=== PATIENT | male | born 1975 | race Caucasian/White ===

== ENCOUNTER 2022-08-25 11:26 | Inpatient (IN) ==
[2022-08-25] MEDS ORDERED: SODIUM CHLORIDE 0.9% 1000ML 1,000 ML IV STA (11:52)
[2022-08-25] MEDS ORDERED: ASPIRIN CHEW 324 MG PO STA (11:52)
[2022-08-25] MEDS ORDERED: ADENOSINE IV SOLN 3 MG/ML 2 ML VIAL IV STA (11:54)
[2022-08-25] MEDS ORDERED: ADENOSINE IV SOLN 3 MG/ML 2 ML VIAL IV ONE (11:55)
[2022-08-25] MEDS ORDERED: dilTIAZem HCl 5 MG/ML 5 ML VIAL IV STA (11:58)
[2022-08-25] MEDS ORDERED: STAT IV Infusion **Titration per Protocol STA (12:15)
--- NOTE | 2022-08-25 12:15 | XRay Report ---
SINGLE VIEW CHEST CLINICAL HISTORY: Atypical chest pain. FINDINGS: 2 AP, portable, upright chest radiographs are obtained. No prior studies are available for comparison at the time of dictation. The examination is degraded by portable technique and apical adrian dotic positioning. The cardiomediastinal silhouette is top normal for projection. The lungs and pleur al spaces are clear. No pneumothorax is seen. The bony thorax is grossly intact. IMPRESSION: No active disease in the chest. ACT 112: Negative or not required by law. Electronically signed by: Omar aBrtlett M.D. 08/25/2022 12:13 PM
[2022-08-25 12:19] LABS: Basophils # (auto) 0.07 K/uL (0-0.2); Basophils % (auto) 0.8 %; Eosinophils # (auto) 0.05 K/uL (0-0.50); Eosinophils % (auto) 0.6 %; Hematocrit (blood only) 49.6 % (40.1-51.0); Hemoglobin 16.8 g/dl (14.0-18.0); Immature Granulocytes # (auto) 0.12 K/uL (0.00-0.02); Immature Granulocytes % (auto) 1.5 %; Lymphocytes # (auto) 1.27 K/uL (1.2-3.4); Lymphocytes % (auto) 15.4 %; Mean Corpuscular Hemoglobin 30.8 pg (25.0-34.0); Mean Corpuscular Hgb Conc 33.9 g/dL (32.0-36.0); Mean Corpuscular Volume 90.8 fL (80.0-100.0); Mean Platelet Volume 10.3 fL (9.4-12.4); Monocytes # (auto) 0.31 K/uL (0.24-0.82); Monocytes % (auto) 3.8 %; Neutrophils # (auto) 6.42 K/uL (1.4-6.5); Neutrophils % (auto) 77.9 %; Platelet Count 312 K/uL (130-400); RDW Coefficient of Variation 11.8 % (11.5-14.5); RDW Standard Deviation 39.1 fL (36.4-46.3); Red Blood Count 5.46 M/uL (4.63-6.08); White Blood Count 8.24 K/ul (4.8-10.8)
[2022-08-25] MEDS: dilTIAZem HCL 125 MG in DEXTROSE 5% 100 ML IV SCH (12:31)
[2022-08-25 12:37] LABS: D Dimer 380 ug/L FEU (0-500); Partial Thromboplastin Time 26.3 Seconds (21.0-31.0); Prothrombin Time 10.8 Seconds (9.0-12.0)
[2022-08-25 12:50] LABS: BUN Creatinine Ratio 21.1 (10-20); Calcium 10.5 mg/dl (8.5-10.1); Creatinine Clr Calc Pharmacy 106.7 ml/min; Est GFR (African American) 88.3 ml/min; Est GFR (Non-African American) 76.2 ml/min; Magnesium 2.2 mg/dl (1.7-2.4); Potassium 4.4 mmol/L (3.5-5.1)
[2022-08-25 12:52] LABS: Troponin I High Sensitivity 10.2 pg/ml (0-20)
[2022-08-25] MEDS ORDERED: ACETAMINOPHEN 325 MG TAB PO PRN (13:56)
[2022-08-25] MEDS ORDERED: ALUMINUM/MAGNESIUM SUSP 30 ML UDC PO PRN (13:56)
[2022-08-25] MEDS ORDERED: MAGNESIUM HYDROXIDE SUSP 30 ML UDC PO PRN (13:56)
[2022-08-25] MEDS ORDERED: POLYETHYLENE (MIRALAX) 17 GM PACK PO PRN (13:56)
[2022-08-25] MEDS ORDERED: ONDANSETRON INJ 2 MG/ML 2 ML VIAL IV PRN (13:56)
--- NOTE | 2022-08-25 13:56 | History & Physical Report ---
Date of Service August 25, 2022 Assessment & Plan (1) New onset a-fib: Plan: New onset; Only reports 20 years ago experiencing an episode of fluttering in his chest for which she went to [facility]. no formal work-up Initially SVT in ED; received NSB 1L x1 and adenosine 6 mg x 2; A. fib/flutter Loaded with 20 mg IV diltiazem; diltiazem drip initiated with titration orders Echo ordered and pending; No baseline in EMR Cardiology consult placed; await further recommendations Orthostatic BPs x3 FOBT prior to any anticoagulation Trend troponin; initial result 10.2 AM labs; TSH Ordered and pending (2) HTN (hypertension): Plan: Takes lisinopril in a.m. notices dizziness midday when he goes from sitting to standing. resolves quickly. Continue Lisinopril for now; await further reccs from Cardiology Creatinine 1.14 (3) Diabetes mellitus due to underlying condition with stage 2 chronic kidney disease, without long-term current use of insulin: Plan: . (4) Macular degeneration: (5) Obesity: Plan: Diagnosed 3 years ago and follows with PCP and glycemic pharmacist outpatient Takes Ozempic weekly on Saturdays, Jardiance, Prandin, glipizide, metformin; hold while inpatient 06/11 A1c 7.5; will recheck while inpatient. Recheck while here patient was receiving steroids outpatient and patient reports his sugars were not reliable on his CGM Transition to [facility] and [facility]cemic pharmacy on board Macular degeneration is mild per patient report (6) Cellulitis of left foot: Plan: Was being treated outpatient since 08/19 with Prednisone; last dose was this morning Blood cultures + MSSA; does not appear toxic at this time Started Ceftin on 08/21; will transition to Ceftriaxone while here; will provide MSSA coverage and decent gram negative coverage No purulent drainage from wound; per patient appears to be improving. left Foot CT r/o abscess (7) HLD (hyperlipidemia): Plan: Takes Rosuvastatin; continue TG 432, LDL 79, HDL 150 Per outpatient records recheck Lipid panel in a.m. Plan Disposition: PCP Dr. Smiley CODE STATUS: Full code VTE prophylaxis: Teds and SCDs for now Point of contact Silas huitron's brother [phone] A total of 92 minutes was spent with greater than 50% of that time personally reviewing all current laboratory work and diagnostic imaging studies obtained in the ED. Additionally, I was able to review the patients past medication reconciliation and history with direct visualization in the patients chart. Included in the time above, a portion of that time was spent assessing the patient while discussing and collaborating with specialists, if necessary, and making medical decisions regarding orders to be placed. All of the aforementioned completed while collaborating with Dr. Joyce for a full treatment plan. Please see her addendum for further details. History of Present Illness Chief Complaint: referred by doctor Primary Care Provider: Chery Smiley MD Mr. Michael Jeffries is a 46-year-old male that presented to the [facility] as per recommendation by his PCP Dr. Smiley. He was being seen for outpatient follow-up for left foot cellulitis and found to be tachycardic in the office. In the ED, the patient was found to have a heart rate of 160. He was given NSB 1L x1 along with adenosine 6 mg x 2; underlying rhythm appears to be rapid atrial fibrillation/atrial flutter. In the ED labs relatively unremarkable aside outside of his glucose level 215. He states that he was receiving prednisone as an outpatient for treatment for his foot cellulitis. Last dose of prednisone was today. Troponin 10.2, D-dimer 380. Patient states that he has been noticing intermittent dizziness midday for the last 8 months which he attributes to his morning dose of lisinopril. Patient states that 20 years ago he did have work-up at [facility] in [place] after he started to have fluttering in his chest however no official diagnosis was received at that time. 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 Patient also plays the guitar. Patient denies headache, chest pain, palpitations, visual changes, nausea, vomiting, diarrhea, appetite changes, recent falls or trauma. Additional past medical history includes noninsulin-dependent diabetic, type two, peripheral neuropathy,hyperlipidemia, hypertension and obesity. Patient states he drinks coffee 1 time per day, is a social beer drinker with 5- 6 beers per month and occasional bourbon. Patient quit smoking 17 years ago. No recreational drug use. No exercise routine. Patient reports that his father of a AMI 4 years ago. MGF diabetic, CVA. In the ED, the patient was lying in his bed in no apparent distress and was able to speak in complete sentences without distress. Patient will be admitted for further evaluation and management. Please see A/P for further details. Allergies Allergy/AdvReac Type Severity Reaction Status Date / Time No Known Allergies Allergy Unverified 05/27/13 12:09 Home Medications Medication Instructions Recorded Confirmed Type GLIPIZIDE (GLUCOTROL) 5 mg PO twice daily w meals ##60 05/31/13 08/25/22 Rx METFORMIN HCL (GLUCOPHAGE EXT REL) 1,000 mg PO BID #0 tabs 07/06/13 08/25/22 History ATORVASTATIN (LIPITOR) 10 mg PO DAILY #0 tabs 10/07/13 08/25/22 History empagliflozin 25 mg tablet 25 mg PO QAM 08/25/22 08/25/22 History lisinopril 10 mg tablet 10 mg PO DAILY 08/25/22 08/25/22 History repaglinide 0.5 mg tablet 0.5 mg 08/25/22 History rosuvastatin 20 mg tablet 20 mg PO DAILY 08/25/22 08/25/22 History Past Med/Surg History Medical History Cellulitis of left foot Diabetes mellitus due to underlying condition with stage 2 chronic kidney disease, without long-term current use of insulin HLD (hyperlipidemia) HTN (hypertension) Macular degeneration New onset a-fib Obesity Social History Smoking Status: Former smoker Tobacco Type: Cigarettes Second Hand Exposure: No; Do You Dip or Chew Tobacco: No; Hx Alcohol Use: Yes Alcohol type: beer and other Hx Substance Use: Yes Last Used Substance Other:: month ago Substance Use Type Other:: twice a year Preferred Language: Lebanese Communication Ability: Effective Floor Polisher Required: No Beliefs That Will Affect Care: None Current Living Situation: Alone Other Information That Helps Us Care for You: No Feels Safe at Home: Yes Safety Concerns: Feels Safe At This Time Assistive Devices: Glasses Review of Systems Review of Systems: Neuro: (-) Falls, trauma, slurred speech HEENT: (-) BARNES, dizziness, dysphagia, visual or auditory changes CV: (-) CP, palpitations, swelling Resp: (-) SOB GI: (-) appetite changes, N/V/D, bowel changes : (-) urinary changes Skin: (-) rashes Psych: (-) anxiety, depression Physical Exam Physical Exam: Neuro: AAOx4, PERRLA, no aphagia, memory changes, CNII-XII grossly intact HEENT: head normocephalic, moist mucus membranes CV: S1/S2, (-) M/G/R, (-) edema, cap refill < 3 seconds Resp: Lungs CTA in all suarez. On RA GI: Abdomen S/NT/ND, Ax4 bowel sounds, (-) CVA tenderness Musculoskeletal: 5/5 B/L UE strength, 5/5 B/L LE strength. No gait disturbance Skin: (-) rashes , (+) erythema dorsal part of left foot. Dime sized wound Without purulent drainage. Erythematous borders. Psych: euthymic mood Results & Data Results & Data ([facility]) Vital Signs (Past 12 Hours) Vital Signs Temp Pulse Pulse Resp BP BP Pulse Ox 08/25/22 12:08 08/25/22 12:06 109 H 20 131/95 100 08/25/22 12:06 08/25/22 11:29 36.4 C L 158 H 20 123/79 98 O2 Del Method 08/25/22 12:08 Room Air 08/25/22 12:06 08/25/22 12:06 Room Air 08/25/22 11:29 Room Air Laboratory Results Short CBC 08/25/22 Range/Units 11:40 WBC 8.24 (4.8-10.8) K/ul Hgb 16.8 (14.0-18.0) g/dl Hct 49.6 (40.1-51.0) % Plt Count 312 (130-400) K/uL BMP 08/25/22 11:40 Sodium 139 Potassium 4.4 Chloride 99 Carbon Dioxide 28 BUN 24 H Creatinine 1.14 Glucose 215 H Calcium 10.5 H Diagnostic Findings Chest X-Ray 08/25/22 11:52 SINGLE VIEW CHEST CLINICAL HISTORY: Atypical chest pain. FINDINGS: 2 AP, portable, upright chest radiographs are obtained. No prior studies are available for comparison at the time of dictation. The examination is degraded by portable technique and apical lordotic positioning. The cardiomediastinal silhouette is top normal for projection. The lungs and pleural spaces are clear. No pneumothorax is seen. The bony thorax is grossly intact. IMPRESSION: No active disease in the chest. ACT 112: Negative or not required by law. Electronically signed by: Omar Bartlett M.D. 08/25/2022 12:13 PM Code Status & VTE Plan Code Status Full code in the event of cardiac or respiratory arrest VTE Prophylaxis Plan VTE Prophylaxis will be ordered: Yes Supervising Physician Co-Signing Physician Notes Patient seen and examined. chart reviewed. Case discussed with ARA. Will get CT left foot with contrast. Consult Orthopedic surgery for evaluation. Left foot on exam +fluctuance. Agree with remaining assessment and plan as above
--- NOTE | 2022-08-25 15:09 | Electrocardiogram Report ---
Test Reason : Blood Pressure : / mmHG Vent. Rate : 157 BPM Atrial Rate : 157 BPM P-R Int : 176 ms QRS Dur : 092 ms QT Int : 250 ms P-R-T Axes : 000 -07 025 degrees QTc Int : 404 ms Sinus tachycardia Otherwise normal ECG No previous ECGs available Confirmed by Ihsan Ruiz ([id number]) on 08/25/2022 3:09:37 PM Referred By: Confirmed By:Ihsan Ruiz
[2022-08-25 15:27] LABS: Chol HDL Ratio 5.4 (0-5)
--- NOTE | 2022-08-25 15:27 | Electrocardiogram Report ---
Test Reason : Blood Pressure : / mmHG Vent. Rate : 156 BPM Atrial Rate : 159 BPM P-R Int : 000 ms QRS Dur : 090 ms QT Int : 298 ms P-R-T Axes : 000 -02 018 degrees QTc Int : 480 ms Supraventricular tachycardia Otherwise normal ECG When compared with ECG of 25-AUG-2022 11:34, No significant change was found Confirmed by Ihsan Ruiz ([id number]) on 08/25/2022 3:27:07 PM Referred By: [id number] Confirmed By:Ihsan Ruiz
--- NOTE | 2022-08-25 15:29 | Electrocardiogram Report ---
Test Reason : Blood Pressure : / mmHG Vent. Rate : 119 BPM Atrial Rate : 340 BPM P-R Int : 000 ms QRS Dur : 096 ms QT Int : 320 ms P-R-T Axes : 000 -06 016 degrees QTc Int : 450 ms Atrial flutter with variable A-V block Abnormal ECG When compared with ECG of 25-AUG-2022 11:53, HR has decreased by 37 bpm Prior ECGs from today also likely atrial flutter Confirmed by Ihsan Ruiz ([id number]) on 08/25/2022 3:28:54 PM Referred By: REFERRED SELF Confirmed By:Ihsan Ruiz
--- NOTE | 2022-08-25 15:33 | Electrocardiogram Report ---
Test Reason : Blood Pressure : / mmHG Vent. Rate : 108 BPM Atrial Rate : 326 BPM P-R Int : 000 ms QRS Dur : 096 ms QT Int : 350 ms P-R-T Axes : 254 -10 015 degrees QTc Int : 469 ms Atrial flutter with variable A-V block Abnormal ECG When compared with ECG of 25-AUG-2022 12:01, No significant change Confirmed by Ihsan Ruiz ([id number]) on 08/25/2022 3:33:02 PM Referred By: REFERRED SELF Confirmed By:Ihsan Ruiz
--- NOTE | 2022-08-25 15:38 | Electrocardiogram Report ---
Test Reason : Blood Pressure : / mmHG Vent. Rate : 112 BPM Atrial Rate : 112 BPM P-R Int : 134 ms QRS Dur : 090 ms QT Int : 336 ms P-R-T Axes : 073 -12 009 degrees QTc Int : 458 ms Atrial flutter with 3:1 block Borderline ECG When compared with ECG of 25-AUG-2022 12:28, No significant change Confirmed by Ihsan Ruiz ([id number]) on 08/25/2022 3:37:50 PM Referred By: REFERRED SELF Confirmed By:Ihsan Ruiz
[2022-08-25] MEDS ORDERED: cefTRIAXone SODIUM 2000MG/70ML D5W IV ONE (16:21)
--- NOTE | 2022-08-25 16:21 | Emergency Department Note ---
History of Present Illness General Chief complaint: Arrhythmia/Palpitations Stated complaint: REF BY DOC, ARRHYTHMIA Time Seen by Provider: 08/25/22 11:46 History of Present Illness Provider complaint: Arrhythmia Onset (ago): unknown Maximum Pain Intensity: 1 46-year-old male presents emergency department for evaluation for arrhythmia. Patient states he went to his PCPs office to follow-up on his foot which he is being treated for for cellulitis. He states his foot is much better after being on outpatient antibiotics. He states while at his PCPs office they noted his heart rate was fast did an EKG and sent him to the emergency department because they thought he had an arrhythmia. Patient reports no chest pain difficulty breathing. No trauma. No fall. No exogenous hormone usage. No hemoptysis. No hematuria or dysuria. No recent travel. Patient does report recently having COVID-19. Home Medications Medication Instructions Recorded Confirmed Type GLIPIZIDE (GLUCOTROL) 5 mg PO twice daily w meals ##60 05/31/13 08/25/22 Rx METFORMIN HCL (GLUCOPHAGE EXT REL) 1,000 mg PO BID #0 tabs 07/06/13 08/25/22 History ATORVASTATIN (LIPITOR) 10 mg PO DAILY #0 tabs 10/07/13 08/25/22 History empagliflozin 25 mg tablet 25 mg PO QAM 08/25/22 08/25/22 History lisinopril 10 mg tablet 10 mg PO DAILY 08/25/22 08/25/22 History repaglinide 0.5 mg tablet mg 08/25/22 History rosuvastatin 20 mg tablet 20 mg PO DAILY 08/25/22 08/25/22 History Allergies Allergy/AdvReac Type Severity Reaction Status Date / Time No Known Allergies Allergy Unverified 05/27/13 12:09 Past Med/Surg History Medical History Cellulitis of left foot Diabetes mellitus due to underlying condition with stage 2 chronic kidney disease, without long-term current use of insulin HLD (hyperlipidemia) HTN (hypertension) Macular degeneration New onset a-fib Obesity Social History Smoking Status: Former smoker Tobacco Type: Cigarettes Feels Safe at Home: Yes Physical Exam Vital Signs Vital Signs - 24 hr 08/25/22 11:29 08/25/22 12:06 08/25/22 12:06 Temperature 36.4 C L Temperature Source Skin Pulse Rate 158 H Pulse Rate [Apical] 109 H Pulse Rate from SpO2 Sensor Respiratory Rate 20 20 Respiratory Effort / Characteristics Non-Labored Spontaneous Respiratory Depth Normal Respiratory Pattern Regular Blood Pressure 123/79 Blood Pressure [Left Arm] 131/95 Blood Pressure Mean 93 Blood Pressure Mean [Left Arm] 107 Pulse Oximetry 98 100 Oxygen Delivery Method Room Air Room Air Sepsis Recent Fever Within 48 Hours No Sepsis New/Unexplained Change in Mental Status N/A Sepsis Action Taken by Nursing No Action Required 08/25/22 12:08 08/25/22 11:50 08/25/22 11:51 Temperature Temperature Source Pulse Rate 157 H Pulse Rate [Apical] Pulse Rate from SpO2 Sensor 157 H Respiratory Rate 14 Respiratory Effort / Characteristics Respiratory Depth Respiratory Pattern Blood Pressure 144/104 H Blood Pressure [Left Arm] Blood Pressure Mean 117 Blood Pressure Mean [Left Arm] Pulse Oximetry 98 Oxygen Delivery Method Room Air Sepsis Recent Fever Within 48 Hours Sepsis New/Unexplained Change in Mental Status Sepsis Action Taken by Nursing 08/25/22 11:58 08/25/22 11:58 08/25/22 12:00 Temperature Temperature Source Pulse Rate 157 H Pulse Rate [Apical] Pulse Rate from SpO2 Sensor 156 H Respiratory Rate 15 Respiratory Effort / Characteristics Respiratory Depth Respiratory Pattern Blood Pressure 124/98 131/95 Blood Pressure [Left Arm] Blood Pressure Mean 106 107 Blood Pressure Mean [Left Arm] Pulse Oximetry 99 Oxygen Delivery Method Sepsis Recent Fever Within 48 Hours Sepsis New/Unexplained Change in Mental Status Sepsis Action Taken by Nursing 08/25/22 12:00 08/25/22 12:30 08/25/22 12:30 Temperature Temperature Source Pulse Rate 157 H 109 H Pulse Rate [Apical] Pulse Rate from SpO2 Sensor 156 H 99 H Respiratory Rate 16 16 Respiratory Effort / Characteristics Respiratory Depth Respiratory Pattern Blood Pressure 127/75 Blood Pressure [Left Arm] Blood Pressure Mean 92 Blood Pressure Mean [Left Arm] Pulse Oximetry 100 96 Oxygen Delivery Method Sepsis Recent Fever Within 48 Hours Sepsis New/Unexplained Change in Mental Status Sepsis Action Taken by Nursing 08/25/22 13:00 08/25/22 13:00 08/25/22 13:34 Temperature Temperature Source Pulse Rate 111 H 126 H Pulse Rate [Apical] Pulse Rate from SpO2 Sensor 85 Respiratory Rate 6 L 12 Respiratory Effort / Characteristics Respiratory Depth Respiratory Pattern Blood Pressure 118/77 Blood Pressure [Left Arm] Blood Pressure Mean 90 Blood Pressure Mean [Left Arm] Pulse Oximetry 96 Oxygen Delivery Method Sepsis Recent Fever Within 48 Hours Sepsis New/Unexplained Change in Mental Status Sepsis Action Taken by Nursing 08/25/22 14:00 08/25/22 14:30 08/25/22 14:31 Temperature Temperature Source Pulse Rate 113 H 112 H Pulse Rate [Apical] Pulse Rate from SpO2 Sensor Respiratory Rate 22 Respiratory Effort / Characteristics Respiratory Depth Respiratory Pattern Blood Pressure 131/80 Blood Pressure [Left Arm] Blood Pressure Mean 97 Blood Pressure Mean [Left Arm] Pulse Oximetry Oxygen Delivery Method Sepsis Recent Fever Within 48 Hours Sepsis New/Unexplained Change in Mental Status Sepsis Action Taken by Nursing 08/25/22 14:31 08/25/22 15:00 08/25/22 15:00 Temperature Temperature Source Pulse Rate 114 H 112 H Pulse Rate [Apical] Pulse Rate from SpO2 Sensor Respiratory Rate Respiratory Effort / Characteristics Respiratory Depth Respiratory Pattern Blood Pressure 122/75 Blood Pressure [Left Arm] Blood Pressure Mean 90 Blood Pressure Mean [Left Arm] Pulse Oximetry Oxygen Delivery Method Sepsis Recent Fever Within 48 Hours Sepsis New/Unexplained Change in Mental Status Sepsis Action Taken by Nursing Physical Exam GENERAL: He is oriented to person, place, and time. He appears well-developed and well-nourished. He does not appear distressed. HENT: Exam performed. - Head: Normocephalic and atraumatic. - Right Ear: External ear normal. No mastoid tenderness. - Left Ear: External ear normal. No mastoid tenderness. - Mouth/Throat: The oropharynx is clear and moist. No trismus in the jaw. No dental abscesses or uvula swelling. No oropharyngeal exudate or tonsillar abscesses. EYES: Conjunctivae and EOM are normal. Pupils are equal, round, and reactive to light. Right eye exhibits no discharge. Left eye exhibits no discharge. No scleral icterus. NECK: Normal range of motion. Neck supple. No JVD present. No spinous process tenderness present. No carotid bruit present. No rigidity. No tracheal deviation and normal range of motion present. No Brudzinski's sign and no Kernig's sign noted. CV: Tachycardic rate, regular rhythm, normal heart sounds and intact distal pulses. There is no peripheral edema. Palpable radial pulses bue. PULM/CHEST: Effort normal and breath sounds normal. No respiratory distress. No stridor. He has no wheezes. He has no rales. - Chest Wall: He exhibits no tenderness. ABD: The abdomen is soft. Bowel sounds are normal. He has no distension. No mass is present. There is no tenderness. There is no rebound, no guarding, no Murp hy's sign and no tenderness at McBurney's point. Rovsig negative. MUSC/SKEL: Normal range of motion. There is no peripheral edema, tenderness or deformity. LYMPH: No cervical adenopathy. NEURO: He is alert and oriented to person, place, and time. He has normal strength. No cranial nerve deficit or sensory deficit. Coordination and gait normal. GCS eye subscore is 4. GCS verbal subscore is 5. GCS motor subscore is 6. Cerebellar tests wnl. SKIN: Erythema over the dorsum of the left foot. No fluctuant areas no bullae no vesicles Nikolsky negative. Course Course 1146: The patient was evaluated in room C2. A complete history and physical exam was performed Cardiac monitoring: An order was placed for continuous cardiac monitoring. The monitor shows a rate of 160 with svt rhythm Patient's monitoring coordinator shows SVT. Adenosine 6 mg IV push was conducted and after that the adenosine was pushed rhythm strip was involved which appeared to be atrial flutter. Patient was given Cardizem bolus 20 mg IV push which did ap pear to improve the patient's ventricular rate. 1215: Patient remains tachycardic in atrial flutter/atrial fibrillation on the monitor. Patient will be started on Cardizem drip. 1330: Vital signs stable on Cardizem drip. Labs and imaging are within normal limits including negative D-dimer troponin and chest x-ray. [facility] new onset atrial fibrillation usually controlled on Cardizem drip. Administered Medications Diltiazem HCl 125 mg/ Dextrose 125 mls @ 7.5 mls/hr IV .[id number] [facility]; Protocol Stop: 09/24/22 12:14 Last Titration: 08/25/22 12:55 Dose: 7.5 mg/hr, 7.5 mls/hr Documented By: WILALM Co-signed By: COREEN Titration: 08/25/22 12:53 Dose: 10 mg/hr, 10 mls/hr Documented By: WILLAM Co-signed By: JENNIFER Admin: 08/25/22 12:31 Dose: 5 mg/hr, 5 mls/hr Documented By: WILLAM Co-signed By: JENNIFER Discontinued Medications Adenosine (Adenosine Iv Soln 3 Mg/Ml 2 Ml Vial) 6 mg IV NOW STA Stop: 08/25/22 11:55 Last Admin: 08/25/22 12:10 Dose: 6 mg Documented By: WILLAM Adenosine (Adenosine Iv Soln 3 Mg/Ml 2 Ml Vial) Confirm Administered Dose 6 mg IV .STK-MED ONE Stop: 08/25/22 11:56 Last Admin: 08/25/22 12:12 Dose: Not Given Documented By: WILLAM Aspirin (Aspirin Chew 324 Mg) 324 mg PO NOW STA Stop: 08/25/22 11:53 Last Admin: 08/25/22 12:10 Dose: 324 mg Documented By: WILLAM Diltiazem HCl (Diltiazem Hcl 5 Mg/Ml 5 Ml Vial) 20 mg IV NOW STA Stop: 08/25/22 11:59 Last Admin: 08/25/22 12:11 Dose: 20 mg Documented By: WILLAM Co-signed By: JAVIER Sodium Chloride (Nss 1000ml) 1,000 mls @ 999 mls/hr IV .Q1H1M STA Stop: 08/25/22 12:52 Last Admin: 08/25/22 12:10 Dose: 999 mls/hr Documented By: WILLAM Miscellaneous (Stat Iv Infusion Titration Per Protocol) 1 each N/A NOW STA Stop: 08/25/22 12:16 Last Admin: 08/25/22 12:34 Dose: Not Given Documented By: WILLAM Critical Care Time Critical Care Time: Yes Total Critical Care Time: 64 I have personally spent greater than 64 minutes of critical care time in the direct management of this patient. This includes bedside care, interpretation of diagnostic studies, and testing, discussion with consultants, patient, and family members, and other required patient management activities. This 64 minutes is in excess of all separately billable procedures. Medical Decision Making Laboratory Data Attestation: I reviewed the patient's lab results. Result diagrams: 08/25/22 11:40 08/25/22 11:40 Lab Results 08/25/22 08/25/22 08/25/22 Range/Units 11:40 11:40 11:40 WBC 8.24 (4.8-10.8) K/ul RBC 5.46 (4.63-6.08) M/uL Hgb 16.8 (14.0-18.0) g/dl Hct 49.6 (40.1-51.0) % MCV 90.8 (80.0-100.0) fL MCH 30.8 (25.0-34.0) pg MCHC 33.9 (32.0-36.0) g/dL RDW Std Deviation 39.1 (36.4-46.3) fL RDW Coeff of Stephanie 11.8 (11.5-14.5) % Plt Count 312 (130-400) K/uL MPV 10.3 (9.4-12.4) fL Immature Gran % (Auto) 1.5 % Neut % (Auto) 77.9 % Lymph % (Auto) 15.4 % Branch % (Auto) 3.8 % Eos % (Auto) 0.6 % Baso % (Auto) 0.8 % Neut # (Auto) 6.42 (1.4-6.5) K/uL Lymph # (Auto) 1.27 (1.2-3.4) K/uL Branch # (Auto) 0.31 (0.24-0.82) K/uL Eos # (Auto) 0.05 (0-0.50) K/uL Baso # (Auto) 0.07 (0-0.2) K/uL Immature Gran # (Auto) 0.12 H (0.00-0.02) K/uL PT 10.8 (9.0-12.0) Seconds INR 1.0 (0.9-1.1) APTT 26.3 (21.0-31.0) Seconds PTT Ratio 1.0 D-Dimer 380 (0-500) ug/L FEU Sodium 139 (136-145) mmol/L Potassium 4.4 (3.5-5.1) mmol/L Chloride 99 (98-107) mmol/L Carbon Dioxide 28 (21-32) mmol/L Anion Gap 12 H (3-11) BUN 24 H (6-23) mg/dl Creatinine 1.14 (0.6-1.4) mg/dl Est Cr Clr Drug Dosing 106.7 ml/min Est GFR ( Amer) 88.3 ml/min Est GFR (Non-Af Amer) 76.2 ml/min BUN/Creatinine Ratio 21.1 H (10-20) Glucose 215 H (70-99(Fasting)) mg/dl Calcium 10.5 H (8.5-10.1) mg/dl Magnesium 2.2 (1.7-2.4) mg/dl Troponin I High Sens 10.2 (0-20) pg/ml Triglycerides (0-150) mg/dl Cholesterol (0-200) mg/dl LDL Cholesterol, Calc mg/dl VLDL Cholesterol, Calc (0-30) mg/dl HDL Cholesterol mg/dl Cholesterol/HDL Ratio (0-5) Lipase 30 (11-82) U/L SARS-CoV-2, RNA, NAAT (NEGATIVE) 08/25/22 08/25/22 Range/Units 11:44 12:17 WBC (4.8-10.8) K/ul RBC (4.63-6.08) M/uL Hgb (14.0-18.0) g/dl Hct (40.1-51.0) % MCV (80.0-100.0) fL MCH (25.0-34.0) pg MCHC (32.0-36.0) g/dL RDW Std Deviation (36.4-46.3) fL RDW Coeff of Stephanie (11.5-14.5) % Plt Count (130-400) K/uL MPV (9.4-12.4) fL Immature Gran % (Auto) % Neut % (Auto) % Lymph % (Auto) % Branch % (Auto) % Eos % (Auto) % Baso % (Auto) % Neut # (Auto) (1.4-6.5) K/uL Lymph # (Auto) (1.2-3.4) K/uL Branch # (Auto) (0.24-0.82) K/uL Eos # (Auto) (0-0.50) K/uL Baso # (Auto) (0-0.2) K/uL Immature Gran # (Auto) (0.00-0.02) K/uL PT (9.0-12.0) Seconds INR (0.9-1.1) APTT (21.0-31.0) Seconds PTT Ratio D-Dimer (0-500) ug/L FEU Sodium (136-145) mmol/L Potassium (3.5-5.1) mmol/L Chloride (98-107) mmol/L Carbon Dioxide (21-32) mmol/L Anion Gap (3-11) BUN (6-23) mg/dl Creatinine (0.6-1.4) mg/dl Est Cr Clr Drug Dosing ml/min Est GFR ( Amer) ml/min Est GFR (Non-Af Amer) ml/min BUN/Creatinine Ratio (10-20) Glucose (70-99(Fasting)) mg/dl Calcium (8.5-10.1) mg/dl Magnesium (1.7-2.4) mg/dl Troponin I High Sens (0-20) pg/ml Triglycerides 314 H (0-150) mg/dl Cholesterol 178 (0-200) mg/dl LDL Cholesterol, Calc 82 mg/dl VLDL Cholesterol, Calc 63 H (0-30) mg/dl HDL Cholesterol 33 mg/dl Cholesterol/HDL Ratio 5.4 H (0-5) Lipase (11-82) U/L SARS-CoV-2, RNA, NAAT NEGATIVE (NEGATIVE) Imaging Data Radiologist's Impression: Chest X-Ray 08/25/22 11:52 SINGLE VIEW CHEST CLINICAL HISTORY: Atypical chest pain. FINDINGS: 2 AP, portable, upright chest radiographs are obtained. No prior studies are available for comparison at the time of dictation. The examination is degraded by portable technique and apical lordotic positioning. The car diomediastinal silhouette is top normal for projection. The lungs and pleural spaces are clear. No pneumothorax is seen. The bony thorax is grossly intact. IMPRESSION: No active disease in the chest. ACT 112: Negative or not required by law. Electronically signed by: Omar Bartlett M.D. 08/25/2022 12:13 PM ECG Data Attestation: I personally reviewed and interpreted this ECG as follows: Additional Comments: EKG #1 at 1134: SVT with rate of 157 QRS [address] elevation or ST depression. EKG #2 at 1153: SVT with rate of 156. QRS [address] elevation or ST depression. EKG #3 at 1154: SVT with rate of 156. QRS [address] elevation or ST depression EKG #4 at 1201 status post adenosine 6 mg IV push: Atrial flutter with a rate of 119. QRS [address] elevation or ST depression. EKG #5 at 1228 status post Cardizem 20 mg IV push: Atrial flutter with a rate of 108. QRS [address] elevation or ST depression. EKG #6 at 1325: Sinus tachycardia with rate of 112. PA QRS and QTc intervals within normal limits. No ST elevation or ST depression. [facility] Narrative 1146: The patient was evaluated in room C2. A complete history and physical exam was performed Cardiac monitoring: An order was placed for continuous cardiac monitoring. The monitor shows a rate of 160 with svt rhythm Patient's monitoring coordinator shows SVT. Adenosine 6 mg IV push was conducted and after that the adenosine was pushed rhythm strip was involved which appeared to be atrial flutter. Patient was given Cardizem bolus 20 mg IV push which did appear to improve the patient's ventricular rate. 1215: Patient remains tachycardic in atrial flutter/atrial fibrillation on the monitor. Patient will be started on Cardizem drip. 1330: Vital signs stable on Cardizem drip. Labs and imaging are within normal limits including negative D-dimer troponin and chest x-ray. [facility] new onset atrial fibrillation usually controlled on Cardizem drip. Impression & Plan Atrial flutter, SVT (supraventricular tachycardia) Discharge Plan Visit Data Chief Complaint: Arrhythmia/Palpitations Stated Complaint: REF BY DOC, ARRHYTHMIA ED Provider: Angel Charles Discharge Problem: Atrial flutter, SVT (supraventricular tachycardia) Patient Disposition: Admitted As Inpatient Forms Stand Alone Forms: [facility] Prescriptions Prescriptions: No Action GLIPIZIDE (GLUCOTROL) 5 MG tablet 5 mg PO twice daily w meals Qty: 60 2RF METFORMIN HCL (GLUCOPHAGE EXT REL) 1,000 MG tablet 1,000 mg PO BID Qty: 0 ATORVASTATIN (LIPITOR) 10 MG tablet 10 mg PO DAILY Qty: 0 repaglinide 0.5 mg Tablet lisinopril 10 mg Tablet 10 mg PO DAILY rosuvastatin 20 mg Tablet 20 mg PO DAILY empagliflozin 25 mg Tablet 25 mg PO QAM Referrals Referrals: Chery Smiley MD [Primary Care Provider] -
[2022-08-25] MEDS: cefTRIAXone SODIUM 2,000 MG in DEXTROSE 5% 50 ML IV SCH (16:25)
[2022-08-25] MEDS ORDERED: PHARMACY GLYCEMIC MGMT CONSULT PRN (17:27)
[2022-08-25] MEDS ORDERED: CARBOHYDRATES FOR HYPOGLYCEMIA PO PRN (17:27)
[2022-08-25] MEDS ORDERED: GLUCOSE 40% GEL 15 GM TUBE PO PRN (17:27)
[2022-08-25] MEDS ORDERED: DEXTROSE 50% 50 ML SYRINGE IV PRN (17:27)
[2022-08-25] MEDS ORDERED: GLUCOSE 10 TAB/TUBE PO PRN (17:27)
[2022-08-25] MEDS ORDERED: GLUCAGON FOR INJ 1 MG VIAL SQ PRN (17:27)
[2022-08-25] MEDS ORDERED: INSULIN ASPART PER UNIT SC SCH (18:00)
[2022-08-25] MEDS ORDERED: LANTUS PER UNIT CHARGE SQ SCH ×4 (18:00→21:00)
[2022-08-25] MEDS ORDERED: VANCOMYCIN CONSULT ACTIVE PRN (18:04)
[2022-08-25] MEDS ORDERED: VANCOMYCIN HCL 1,000 MG in SODIUM CHLORIDE 0.9% 250 ML IV STA (18:04)
[2022-08-25] MEDS: SODIUM CHLORIDE 0.9% 1000ML 1,000 ML IV SCH (18:23)
[2022-08-25] MEDS ORDERED: VANCOMYCIN HCL 2,250 MG in SODIUM CHLORIDE 0.9% 500 ML IV ONE (18:30)
--- NOTE | 2022-08-25 19:09 | XRay Report ---
LEFT FOOT 3 VIEWS HISTORY: Left foot pain COMPARISON: None. FINDINGS: There is no fracture or dislocation. Soft tissues are unremarkable. Mild vascular calcifica tions are noted within the left ankle. There is a posterior calcaneal spur. The Lisfranc joint is int act. IMPRESSION: No fractures. ACT 112: Negative or not required by law. Electronically signed by: Jaunsz Jacobsen M.D. 08/25/2022 7:06 PM
[2022-08-25] MEDS: INSULIN ASPART PER UNIT SC SCH (20:36)
[2022-08-25] MEDS ORDERED: OPTIRAY 350 100ml IV ONE (21:07)
--- NOTE | 2022-08-25 21:11 | Progress Notes ---
Michael is 46 years old. He is admitted to the hospital for cardiac arrhythmia. About 10 days ago, pedro geller developed redness on the left foot. There is no known injury, insect bite, puncture wound, etc. Pedro geller saw his family doctor, was initially given parenteral antibiotics. This was eventually converted t o orals. Things gradually got better. He initially had pretty significant redness and swelling and some pain. The swelling has improved and the redness has receded from the entire foot to the forefoo t area. He then developed some blistering and some dried skin and what looked like some purulence un derneath it, but it never drained. He reports no injury. He has denied having any fevers, chills, o r sweats. His past medical history is significant for cardiac arrhythmia, diabetes, and obesity. Medications a t home reviewed and noted, Lipitor, empagliflozin ____, glipizide, lisinopril, metformin, repaglinide , rosuvastatin. No known allergies. He is afebrile. His vital signs are stable, although he has been tachycardic, likely related to his heart arrhythmia. White count is 8, hemoglobin 17, hematocrit 50, platelets 312. There is no left s hift. PT/INR normal. His chemistry panel is noted. COVID negative. X-ray of the foot demonstrates possible soft tissue swelling. No air in the tissue. There is no fracture or bony destruction. No evidence of osteomyelitis. No arthritis. Report is noted. CT scan is pending. On exam, PT pulse is nonpalpable, DP pulse is trace. Capillary refill less than 2 seconds. He has f ull movement of the toes, ankle, and subtalar joint without difficulty. The foot is neutrally aligne d and he has 5/5 strength to ankle and toe plantar flexion, dorsiflexion, inversion, and eversion. T here is no pain with passive movement of the toes. There is erythema in the lateral portion of the f orefoot. There is an area of fluctuance, which would somewhat overlie the dorsal aspect of the third metatarsophalangeal joint. There is no pain with movement of this joint and nothing plantarly. Genevieve rything is all localized dorsally. Erythema extending to mid foot down to the base of the digits and over to about the second toe. Minimally tender. Positive fluctuance is noted consistent with fluid . IMPRESSION: Left foot abscess. PLAN: Findings are discussed. He does not have any systemic signs or symptoms of illness. This has been going on for 10 days. I am suspicious that there could be a small abscess present. I would re commend that we go to the operating room tomorrow morning and do an incision and drainage. He agrees to proceed. We talked about treatment options, risks, benefits, rehab, and recovery. He will be n. p.o. after midnight. Continue to elevate. He is on vancomycin and ceftriaxone. There is a chance t hat the infection may involve the metatarsophalangeal joint, which I doubt, but the OR would be the b est place to address that. Informed consent was obtained. No issues with bleeding, blood clots, met al allergies, or MRSA. Job ID: [id number]
--- NOTE | 2022-08-25 21:37 | Pharmacy Report ---
Pharmacy PK ABX Note - Date of Service August 25, 2022 - Assessment and Plan Assessment 46 year old M receiving vancomycin and ceftriaxone for treatment of left foot cellulitis/abscess. Blood cultures pending. Plan for I&D tomorrow. Renal function stable. Day # 1 of antimicrobial therapy. Plan Vancomycin * Loading dose: 2250 mg IV x 1 * Maintenance dose: 1250 mg IV every 12 hours * Regimen is predicted to achieve target AUC/STARR of 400-600 mg/L.hr * Level will be obtained around steady state or sooner if clinically indicated Pharmacy will continue to follow and will adjust dose/frequency as necessary. Thank you. Pharmacy has transitioned to AUC monitoring for vancomycin. AUC/STARR is the preferred PK/PD target and is associated with decreased risk of nephrotoxicity compared to traditional trough targets.
[2022-08-26] MEDS: dilTIAZem HCL 125 MG in DEXTROSE 5% 100 ML IV SCH (04:05)
[2022-08-26 04:30] LABS: Appearance Urine Clear (Clear); Bilirubin Urine Negative (Negative); Blood Urine Negative (Negative); Color Urine Yellow; Glucose Urine UA 3+ (Negative); Ketones Urine 1+ (Negative); Leukocyte Esterase Urine Negative (Negative); Nitrite Urine Negative (Negative); Protein Urine Negative (Negative); Specific Gravity Urine 1.036 (1.000-1.030); Urobilinogen Urine Negative (Negative); pH Urine 5.5 (4.5-7.5)
[2022-08-26] MEDS: SODIUM CHLORIDE 0.9% 1000ML 1,000 ML IV SCH (06:00)
[2022-08-26] MEDS ORDERED: VANCOMYCIN HCL 1,250 MG in SODIUM CHLORIDE 0.9% 250 ML IV SCH (06:00)
[2022-08-26 06:31] LABS: Hemoglobin 14.3 g/dl (14.0-18.0); Mean Corpuscular Hemoglobin 30.6 pg (25.0-34.0); Mean Corpuscular Volume 89.7 fL (80.0-100.0); Platelet Count 259 K/uL (130-400); RDW Coefficient of Variation 11.9 % (11.5-14.5); RDW Standard Deviation 38.6 fL (36.4-46.3); Red Blood Count 4.68 M/uL (4.63-6.08); White Blood Count 7.41 K/ul (4.8-10.8)
[2022-08-26 06:56] LABS: BUN Creatinine Ratio 23.9 (10-20); C Reactive Protein 1.37 mg/dl (0-0.5); Calcium 8.2 mg/dl (8.5-10.1); Creatinine Clr Calc Pharmacy 138.2 ml/min; Est GFR (African American) 118.6 ml/min; Est GFR (Non-African American) 102.3 ml/min
--- NOTE | 2022-08-26 07:55 | Electrocardiogram Report ---
Test Reason : Blood Pressure : / mmHG Vent. Rate : 083 BPM Atrial Rate : 326 BPM P-R Int : 000 ms QRS Dur : 090 ms QT Int : 394 ms P-R-T Axes : 188 039 033 degrees QTc Int : 462 ms Atrial flutter with variable A-V block Abnormal ECG When compared with ECG of 25-AUG-2022 13:25, No significant change was found Confirmed by Ihsan Ruiz ([id number]) on 08/26/2022 7:55:20 AM Referred By: REFERRED SELF Confirmed By:Ihsan Ruiz
--- NOTE | 2022-08-26 08:52 | CT Scan Report ---
LEFT FOOT CT WITH CONTRAST CLINICAL HISTORY: Concern for abscess. COMPARISON STUDY: Left foot radiographs August 25, 2022. TECHNIQUE: Axial images of the left obtained following intravenous injection of 94 cc of Optiray 350 IV. Sagittal and coronal reconstructions were viewed. Automated exposure control was utilized for the study. A dose lowering technique was utilized adhering to the principles of ALARA. FINDINGS: Moderate vascular calcification is noted. There is no soft tissue gas. Alignment of the lef t foot is anatomic. There is no acute fracture. There is no evidence for acute osteomyelitis within t he left foot. No rim-enhancing fluid collection is noted. Note is made of a 2.6 x 0.9 cm focus of sub cutaneous edema overlying the dorsal distal aspects of the third and fourth metatarsals. No additiona l sites of significant edema are present. Distal left tibia and fibula are intact. IMPRESSION: 1. No acute fracture. No evidence for acute osteomyelitis within the left foot. 2. 2.6 x 0.9 cm focus of subcutaneous edema of the dorsal left foot overlying the distal left third a nd fourth metatarsals. Given lack of rim enhancement, phlegmon is favored. A developing abscess would be difficult to exclude. ACT 112: Negative or not required by law. Electronically signed by: Paul Oh M.D. 08/26/2022 8:50 AM
[2022-08-26] MEDS ORDERED: ATORVASTATIN 10 MG PO SCH (09:00)
[2022-08-26] MEDS ORDERED: LANTUS PER UNIT CHARGE SQ SCH (09:00)
[2022-08-26] MEDS: ROSUVASTATIN CALCIUM 20 MG TAB PO SCH (09:24)
[2022-08-26] MEDS: FENOFIBRATE NANOCRYSTALLIZED 145 MG TABLET PO SCH (09:24)
[2022-08-26] MEDS: lisinopril 10 MG TAB PO SCH (09:24)
[2022-08-26] MEDS: INSULIN ASPART PER UNIT SC SCH ×5 (09:24→20:35)
--- NOTE | 2022-08-26 09:38 | Pharmacy Report ---
Pharmacy Glycemic Short Note 2 - Date of Service August 26, 2022 - Glycemic Short BSG Results (Last 24 hours): 08/25/22 08/25/22 08/26/22 11:40 20:17 05:59 Glucose 215 H 88 POC Glucose 91 08/26/22 06:04 Glucose POC Glucose 86 OUTPATIENT ANTIDIABETIC REGIMEN: * Empagliflozin 25mg PO qAM * Glipizide XR 10mg PO qAM * Repaglinide 0.5mg PO TID with meals * Ozempic 1mg SQ weekly (on Thursday) * HbA1c: 7.5% (06/11/22) -- updated A1c pending ASSESSMENT: * Mr Ramos is a 46yo diabetic M, admitted with L foot cellulitis/abscess and new onset AFib. * He was reportedly prescribed prednisone and Ceftin as an outpt for treatment of foot. * Pt was hyperglycemic on presentation to ED (BSG 215 mg/dL). Pt received some fluids and one dose of Lantus. BSGs have been below 100 mg/dL ever since. * Pt is maintained on oral antidiabetic agents as an outpatient * Oral agents are not recommended for inpatient use d/t drug interactions, changing PO intake, and difficulty titrating for acute hyper/hypoglycemia. ADA recommends re-initiating outpatient oral agents 1-2 days prior to discharge if/when appropriate if they were held on admission. * Will hold oral agents for admission and utilize SQ basal bolus insulin regimen which is the recommended regimen for inpatient glycemic control. * Will initiate weight based insulin dosing for insulin shukri patient and titrate based on BSG trends. * Starting with a conservative approach, as patient appears to be insulin- sensitive, based on response to dose given last evening. * ADA & AACE recommend a goal blood sugar range 140-180 mg/dl for the majority of critically ill & non-critically ill patients. However, more stringent targets may be selected in individual cases. Will utilize more stringent goal of 110-140mg/dl based on patient age & comorbidities. Additionally, tighter glycemic control is warranted to facilitate wound/infection healing. * Pt is NPO currently, for evaluation in the OR later today for possible I&D. PLAN FOR INPATIENT GLYCEMIC CONTROL: * Hold outpatient oral diabetes medications * Basal insulin * Lantus 10 units SQ daily -- will reevaluate tomorrow (pt's BSGs have been below goal all day) * Bolus insulin * NovoLog per scale ACHS or Q6hrs while NPO * Goal Range: Low 110 mg/dL - High 140 mg/dL * Correction Factor: 30 mg/dL/unit * Nutritional / Prandial insulin per carb ratio of 1 unit per 10 grams CHO consumed
[2022-08-26] MEDS ORDERED: LIDOCAINE 1% LOCAL 20 ML VIAL ONE (10:18)
[2022-08-26] MEDS ORDERED: BUPIVACAINE 0.5 % 5 MG/1 ML MPF 30ML VIAL ONE (10:18)
[2022-08-26] MEDS ORDERED: PROPOFOL IV EMULSION 10 MG/ML 20 ML VIAL IV ONE ×2 (10:20→12:02)
[2022-08-26] MEDS ORDERED: LIDOCAINE 2% MPF LOCAL 5 ML VIAL INFIL ONE (10:20)
[2022-08-26] MEDS ORDERED: fentaNYL citrate 100 MCG/2 ML VIAL ONE (10:20)
[2022-08-26] MEDS ORDERED: MIDAZOLAM HCL 1 MG/ML 2ML VIAL ONE (10:21)
[2022-08-26] MEDS ORDERED: LABETALOL HCL IV 5 MG/ML 20ML IV PRN (10:24)
[2022-08-26] MEDS ORDERED: fentaNYL citrate 100 MCG/2 ML VIAL IV PRN (10:24)
[2022-08-26] MEDS ORDERED: ePHEDrine sulfate 50 MG/ML AMP IV PRN (10:24)
[2022-08-26] MEDS ORDERED: ATROPINE SULFATE 0.1 MG/ML 10ML SYR IV PRN (10:24)
[2022-08-26] MEDS ORDERED: HYDROmorphone INJ 1 MG/ML SYRINGE IV PRN (10:24)
[2022-08-26] MEDS ORDERED: ONDANSETRON INJ 2 MG/ML 2 ML VIAL IV PRN (10:24)
--- NOTE | 2022-08-26 10:26 | Anesthesiology Consultation ---
Date of Service August 26, 2022 Assessment & Plan (1) Encounter for pre-operative examination: Chart Review Chart Review: Acceptable Risk for Surgery and Patient NOT seen in Pre Admission Testing Consults Requested none History Surgery Operation Date: 08/26/22 09:30 Proposed Procedures p Left Foot Incision and Drainage - Chris aDmian MD Height/Weight Height: 6 ft 1 in Weight: 115.6 kg Allergies Allergy/AdvReac Type Severity Reaction Status Date / Time No Known Allergies Allergy Unverified 08/26/22 10:41 Medications Home Medications Medication Instructions Recorded Confirmed Last Taken GLIPIZIDE (GLUCOTROL) 5 mg PO twice daily w meals ##60 05/31/13 08/25/22 Unknown METFORMIN HCL (GLUCOPHAGE EXT REL) 1,000 mg PO BID #0 tabs 07/06/13 08/25/22 Unknown ATORVASTATIN (LIPITOR) 10 mg PO DAILY #0 tabs 10/07/13 08/25/22 Unknown blood-glucose sensor (Dexcom G6 08/25/22 08/25/22 Unknown Sensor device) empagliflozin 25 mg tablet 25 mg PO QAM 08/25/22 08/25/22 Unknown fenofibrate 150 mg PO QAM 08/25/22 08/25/22 Unknown lisinopril 10 mg tablet 10 mg PO DAILY 08/25/22 08/25/22 Unknown repaglinide 0.5 mg tablet 0.5 mg 08/25/22 Unknown rosuvastatin 20 mg tablet 20 mg PO DAILY 08/25/22 08/25/22 Unknown Active Medications Generic Name Dose Route Start Last Admin Trade Name Freq PRN Reason Stop Dose Admin Fenofibrate 145 mg 08/26/22 09:00 08/26/22 09:24 Fenofibrate Nanocrystallized 145 Mg Tablet PO 09/25/22 08:59 145 mg QAM KATHLEEN Administration Diltiazem HCl 125 mg/ Dextrose 125 mls @ 0 mls/hr 08/25/22 12:15 08/26/22 09:38 IV 09/24/22 12:14 0 mg/hr .Q0M KATHLEEN 0 mls/hr Titration Protocol 0 MG/HR Ceftriaxone Sodium 2,000 mg/ 70 mls @ 100 mls/hr 08/25/22 16:00 08/25/22 17:16 Dextrose IV 09/01/22 15:59 Infused Q24H KATHLEEN Infusion Protocol Sodium Chloride 1,000 mls @ 80 mls/hr 08/25/22 18:15 08/26/22 06:00 Nss 1000ml IV 09/24/22 18:14 80 mls/hr .[id number] KATHLEEN Administration Insulin Aspart 0 units 08/25/22 21:00 08/26/22 09:24 Insulin Aspart Per Unit SC 09/24/22 20:59 Not Given ACHS KATHLEEN Protocol Lisinopril 10 mg 08/26/22 09:00 08/26/22 09:24 Lisinopril 10 Mg Tab PO 09/25/22 08:59 10 mg DAILY KATHLEEN Administration Rosuvastatin Calcium 20 mg 08/26/22 09:00 08/26/22 09:24 Rosuvastatin Calcium 20 Mg Tab PO 09/25/22 08:59 20 mg DAILY KATHLEEN Administration Past Medical History Medical History Cellulitis of left foot Diabetes mellitus due to underlying condition with stage 2 chronic kidney disease, without long-term current use of insulin HLD (hyperlipidemia) HTN (hypertension) Macular degeneration New onset a-fib Obesity Patient converted to SR overnight. Social History Smoking Status: Former smoker Do You Dip or Chew Tobacco: No Hx Alcohol Use: Yes Alcohol type: beer and other alcohol intake frequency: a few times a week Hx Substance Use: Yes substance use type: marijuana Substance Use Type Other:: twice a year Last Used Substance Other:: month ago Physical Exam Vital Signs Last Vital Signs Temp 36.6 C 08/26/22 10:42 Pulse 88 08/26/22 10:42 Resp 20 08/26/22 10:42 BP 133/90 08/26/22 10:42 Pulse Ox 97 08/26/22 10:42 O2 Del Method 08/26/22 10:42 Testing Laboratory Results 08/26/22 05:59 08/26/22 05:59 PT 10.8 Seconds (9.0-12.0) 08/25/22 11:40 INR 1.0 (0.9-1.1) 08/25/22 11:40 APTT 26.3 Seconds (21.0-31.0) 08/25/22 11:40 Urine Color Yellow 08/26/22 Unknown Urine Appearance Clear (Clear) 08/26/22 Unknown Urine pH 5.5 (4.5-7.5) 08/26/22 Unknown Ur Specific [place] 1.036 (1.000-1.030) H 08/26/22 Unknown Urine Protein Negative (Negative) 08/26/22 Unknown Urine Glucose (UA) 3+ (Negative) H 08/26/22 Unknown Urine Ketones 1+ (Negative) H 08/26/22 Unknown Urine Nitrite Negative (Negative) 08/26/22 Unknown Ur Leukocyte Esterase Negative (Negative) 08/26/22 Unknown 08/26/22 08/26/22 10:38 06:04 POC Glucose 88 86 Troponin I high sensitivity 7.1. Electrocardiogram Date: 08/25/22 DICTATED BY:Ihsan Ruiz MD Test Reason : Blood Pressure : / mmHG Vent. Rate : 083 BPM Atrial Rate : 326 BPM P-R Int : 000 ms QRS Dur : 090 ms QT Int : 394 ms P-R-T Axes : 188 039 033 degrees QTc Int : 462 ms Atrial flutter with variable A-V block Abnormal ECG When compared with ECG of 25-AUG-2022 13:25, No significant change was found Confirmed by Ihsan Ruiz ([id number]) on 08/26/2022 7:55:20 AM Chest X-Ray Date: 08/25/22 SINGLE VIEW CHEST CLINICAL HISTORY: Atypical chest pain. FINDINGS: 2 AP, portable, upright chest radiographs are obtained. No prior studies are available for comparison at the time of dictation. The examination is degraded by portable technique and apical lordotic positioning. The cardiomediastinal silhouette is top normal for projection. The lungs and pleural spaces are clear. No pneumothorax is seen. The bony thorax is grossly intact. IMPRESSION: No active disease in the chest.
--- NOTE | 2022-08-26 11:03 | History & Physical Bridge Note ---
Date of Service August 26, 2022 History & Physical Bridge Note I have examined the patient, reviewed the History & Physical and in the interval since the performance of the History & Physical I have noted the following changes of clinical significance: no changes noted. Afebrile. White count normal. Sed rate normal. CRP 1.37. CT scan reviewed. Discussed with medicine and anesthesia. Local with sedation. Plan to proceed.
[2022-08-26 11:09] LABS: Estimated Average Glucose 154 mg/dl
[2022-08-26] MEDS ORDERED: KETAMINE 50 MG/5 ML SYRINGE ONE (11:22)
--- NOTE | 2022-08-26 11:55 | Operative Report ---
Post Operative Report Pre & Post Diagnosis Operation Date: 08/26/22 09:30 Pre-Op Diagnosis: Left foot abscess Post-Op Diagnosis: Left foot abscess I identified the patient and participated in the time-out.: Yes Procedure Operation Date: 08/26/22 09:30 Actual Procedures p Left Foot Incision and Drainage(Left) - Chris Damian MD Surgeon Chris Damian M.D. 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 Time out performed, prepped and draped in routine sterile fashion. I was present during the entire case, please see Dr. Damian's operative report for further detail. Patient was awakened and taken to the recovery room in stable condition. I attest to the content of the Intraoperative Record and any orders documented therein. Any exceptions are noted below.
--- NOTE | 2022-08-26 12:04 | Operative Report ---
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 He has diabetes. He has a 10-day history of a left foot infection treated as an outpatient but now has signs and symptoms consistent with an abscess and is taken to the OR for treatment of such. He is also been admitted to the hospital with atrial fibrillation. Description of Procedure Informed consent obtained. Patient identified.He identified the operative site as the left foot. I marked with my initials. Preoperative surgical timeout was performed. Preop dose of IV antibiotics was given. He was taken to the operating room positioned supine on the operating room table. No tourniquet. Bump under the left hip. DVT prophylaxis not necessary. Leg was prepped and draped in the usual sterile fashion. There was a 2 cm diameter area just proximal to the third metatarsal phalangeal joint on the dorsum of the foot with fluctuance and erythema as well as some superficial epidermal necrosis. A 3 cm longitudinal incision was made. Once through the skin thick creamy purulence was noted. A culture was obtained and sent for routine analysis. The area was then irrigated with 500 cc of sterile normal saline. The area was explored and found to communicate a little bit over to the dorsum of the second metatarsophalangeal joint. The extensor tendons were visualized deep within the wound but there was nothing indicative of infection between the toes or anything coming out of the metatarsophalangeal joints. Curettage and debridement with a rongeur was performed to remove mucinous material and necrotic fat. The wound was then closed proximally and distally with interrupted 3-0 nylon sutures. The central third was left open and then quarter inch iodoform gauze was inserted. A postop dressing was applied. Xeroform 4 x 4's fluffs between the toes soft wrap David wrap postop shoe. Patient wake from anesthesia without difficulty and taken to the recovery room in stable condition. There were no complications. Specimens were as mentioned above counts are correct and blood loss was 1 cc. At the conclusion of the operation spoke patient's family. His brother. Informed of my findings and postop instructions were given. Continue the broad- spectrum antibiotics. Follow-up on the culture and adjust accordingly. He can weight-bear as tolerated. Continue to elevate. We will pull the packing out and 24 to 48 hours. Will likely need repacking wet-to-dry dressing or possibly even a wound VAC depending on the circumstances. I attest to the content of the Intraoperative Record and any orders documented therein. Any exceptions are noted below.
--- NOTE | 2022-08-26 12:15 | Anesthesiology Progress Note ---
Date of Service August 26, 2022 Anesthesia Post Procedure Vital Signs Vital Signs: Temp Pulse Pulse Pulse Resp BP BP 08/26/22 12:05 88 18 08/26/22 11:55 36.0 C L 90 18 08/26/22 11:10 85 08/26/22 10:42 36.6 C 88 20 08/26/22 08:00 36.5 C 84 16 116/63 08/26/22 05:02 84 08/25/22 22:22 85 08/26/22 03:48 36.5 C 84 18 105/69 08/25/22 23:41 36.6 C 83 18 114/70 08/25/22 19:24 36.8 C 86 18 111/72 08/25/22 17:59 08/25/22 16:53 36.8 C 119 H 21 113/69 08/25/22 16:20 96 H 14 08/25/22 16:20 123/69 08/25/22 16:00 112 H 08/25/22 16:00 119/79 08/25/22 15:34 126 H 08/25/22 16:35 08/25/22 15:00 112 H 08/25/22 15:00 122/75 08/25/22 14:31 114 H 08/25/22 14:31 131/80 08/25/22 14:30 112 H 08/25/22 14:00 113 H 22 08/25/22 13:34 126 H 12 08/25/22 13:00 111 H 6 L 08/25/22 13:00 118/77 08/25/22 12:30 109 H 16 08/25/22 12:30 127/75 BP Pulse Ox Pulse Ox O2 Del Method O2 Del Method 08/26/22 12:05 110/73 95 Room Air 08/26/22 11:55 103/68 98 08/26/22 11:10 08/26/22 10:42 133/90 97 Room Air 08/26/22 08:00 99 Room Air 08/26/22 05:02 08/25/22 22:22 08/26/22 03:48 96 Room Air 08/25/22 23:41 97 Room Air 08/25/22 19:24 95 Room Air 08/25/22 17:59 99 Room Air 08/25/22 16:53 99 Room Air 08/25/22 16:20 08/25/22 16:20 08/25/22 16:00 08/25/22 16:00 08/25/22 15:34 08/25/22 16:35 Room Air 08/25/22 15:00 08/25/22 15:00 08/25/22 14:31 08/25/22 14:31 08/25/22 14:30 08/25/22 14:00 08/25/22 13:34 08/25/22 13:00 96 08/25/22 13:00 08/25/22 12:30 96 08/25/22 12:30 Transfer of Care Handoff Completed per policy Notes Mental Status: alert / awake / arousable and participated in evaluation Patient Amnestic to Procedure: Yes Nausea / Vomiting: adequately controlled Pain: adequately controlled Airway Patency, RR, SpO2: stable & adequate BP & HR: stable & adequate Hydration State: stable & adequate Anesthetic Complications: no major complications apparent and Pt Satisfied with anesthetic care
[2022-08-26] MEDS ORDERED: NALOXONE HCL 0.4 MG/1 ML VIAL/CARP IV PRN (12:47)
[2022-08-26] MEDS ORDERED: HYDROCODONE/ACETAMOPHEN 5/325MG TAB PO PRN (12:47)
[2022-08-26] MEDS ORDERED: SODIUM CHLORIDE 0.9% 1000ML 1,000 ML IV SCH (12:47)
--- NOTE | 2022-08-26 14:08 | Hospitalist Progress Note ---
Date of Service August 26, 2022 Assessment & Plan (1) New onset a-fib: Plan: Was on diltiazem drip, spontaneously converted to sinus rhythm TTE Ordered CHADSVASC- at least 2. Cardiology consulted (2) HTN (hypertension): Plan: continue lisinopril, BP within goal (3) Diabetes mellitus due to underlying condition with stage 2 chronic kidney disease, without long-term current use of insulin: Plan: .Carb coverage insulin while here, resume home medications at discharge (4) Macular degeneration: (5) Obesity: Plan: Ongoing weight loss counseling (6) Cellulitis of left foot: Plan: with abscess -OR today for I/D. -Continue with ceftriaxone, vancomycin. Follow up culture obtained in OR today (7) HLD (hyperlipidemia): Plan: Takes Rosuvastatin; continue TG 432, LDL 79, HDL 150 Per outpatient records started Fenofibrate here as well Plan Disposition: PCP Dr. Smiley CODE STATUS: Full code VTE prophylaxis: Teds and SCDs for now Point of contact Silas patient's brother [phone] Admission and Anticipated Discharge Date Admission Date: August 25, 2022 Subjective Patient feels well. Spontaneously converted to sinus rhythm overnight. Denies chest pain, shortness of breath No fever/chills Physical Exam Physical Exam: Sitting in bed, no acute distress Respiratory: Breathing comfortably on room air, no wheezing/rhonchi/rales Cardiovascular: Regular rate and rhythm, no murmurs/rubs Gastrointestinal (Abdomen): soft, non tender Musculoskeletal: Left dorsum of foot with abscess and surrounding erythema Results & Data Results & Data ([facility]) Vital Signs (Past 12 Hours) Vital Signs Temp Pulse Pulse Pulse Resp BP BP 08/26/22 12:45 36.5 C 93 H 18 118/74 08/26/22 12:15 36.1 C L 89 18 113/70 08/26/22 12:05 88 18 110/73 08/26/22 11:55 36.0 C L 90 18 103/68 08/26/22 11:10 85 08/26/22 10:42 36.6 C 88 20 133/90 08/26/22 08:00 36.5 C 84 16 116/63 08/26/22 05:02 84 08/26/22 03:48 36.5 C 84 18 105/69 Pulse Ox O2 Del Method 08/26/22 12:45 95 Room Air 08/26/22 12:15 96 Room Air 08/26/22 12:05 95 Room Air 08/26/22 11:55 98 08/26/22 11:10 08/26/22 10:42 97 Room Air 08/26/22 08:00 99 Room Air 08/26/22 05:02 08/26/22 03:48 96 Room Air
--- NOTE | 2022-08-26 16:35 | Cardiology Consultation ---
Date of Consultation August 26, 2022 Assessment & Plan (1) Atrial flutter: (2) Cellulitis of left foot: (3) HTN (hypertension): (4) HLD (hyperlipidemia): (5) Diabetes mellitus due to underlying condition with stage 2 chronic kidney disease, without long-term current use of insulin: Plan 46-year-old male found to be in atrial flutter during evaluation and treatment of left foot cellulitis and abscess. Patient spontaneously converted to sinus rhythm after initiation of single dose labetalol and IV diltiazem infusion Event likely precipitated by acute illness Currently [id number] score of 2. Echocardiogram without high risk features 1. Paroxysmal atrial flutter: Plan: Discontinue IV diltiazem. EKG now that in sinus begin oral metoprolol succinate 25 mg p.o. daily. Once surgical stability assured would begin anticoagulation with Eliquis for at least 30 days if no contraindication. 2. History of Present Illness Reason for Consultation: Paroxysmal atrial fibrillation/flutter Requesting Physician: Dr Joyce Attending Physician: Reynaldo Joyce MD History of Present Illness 46-year-old male without prior history of cardiac disease who was noted to be in atrial flutter during evaluation of recent issues involving cellulitis/abscess left foot 1. Type 2 diabetes mellitus 2. Left foot cellulitis with abscess initial diagnosis 08/19/2022 3. Obesity 4. Hypertension 5. Low HDL dyslipidemia with elevated triglyceride Patient referred from outpatient setting yesterday during reevaluation of left foot abscess cellulitis. Patient was noted to be tachycardic and EKG confirmed atrial flutter with elevated ventricular response rate. Patient treated with IV labetalol then IV diltiazem on presentation last evening. Patient spontaneously converted to sinus rhythm earlier this morning. He has since undergone surgical drainage of foot abscess Currently comfortable and in sinus rhythm He denies prior history of arrhythmias, angina, congestive heart failure. No history rheumatic fever scarlet fever. No orthopnea or worsening peripheral edema. Patient was not aware of arrhythmia when present. No history of TIA or stroke Functional capacity currently limited by recent infection generally modestly active. Without specific limitation. Sedentary lifestyle Allergies Allergy/AdvReac Type Severity Reaction Status Date / Time No Known Allergies Allergy Unverified 08/26/22 10:41 Home Medications Medication Instructions Recorded Confirmed Type GLIPIZIDE (GLUCOTROL) 5 mg PO twice daily w meals ##60 05/31/13 08/25/22 Rx METFORMIN HCL (GLUCOPHAGE EXT REL) 1,000 mg PO BID #0 tabs 07/06/13 08/25/22 History ATORVASTATIN (LIPITOR) 10 mg PO DAILY #0 tabs 10/07/13 08/25/22 History blood-glucose sensor (Dexcom G6 08/25/22 08/25/22 History Sensor device) empagliflozin 25 mg tablet 25 mg PO QAM 08/25/22 08/25/22 History fenofibrate 150 mg PO QAM 08/25/22 08/25/22 History lisinopril 10 mg tablet 10 mg PO DAILY 08/25/22 08/25/22 History repaglinide 0.5 mg tablet 0.5 mg 08/25/22 History rosuvastatin 20 mg tablet 20 mg PO DAILY 08/25/22 08/25/22 History Patient History Medical History Cellulitis of left foot Diabetes mellitus due to underlying condition with stage 2 chronic kidney disease, without long-term current use of insulin HLD (hyperlipidemia) HTN (hypertension) Macular degeneration New onset a-fib Obesity Social History Smoking Status: Former smoker Tobacco Type: Cigarettes Second Hand Exposure: No; Do You Dip or Chew Tobacco: No; Hx Alcohol Use: Yes Alcohol type: beer and other Hx Substance Use: Yes Last Used Substance Other:: month ago Substance Use Type Other:: twice a year Preferred Language: Vietnamese Communication Ability: Effective Credit Risk Associate Required: No Beliefs That Will Affect Care: None Current Living Situation: Alone Other Information That Helps Us Care for You: No Feels Safe at Home: Yes Safety Concerns: Feels Safe At This Time Assistive Devices: None Physical Exam Constitutional: WD/WN, vitals as above + obese; no acute distress Eyes: PERRL, conjunctivae normal, anicteric sclerae ENMT: external ear and nose normal, oropharynx normal Neck: trachea midline, no thyromegaly Respiratory: normal respiratory effort, lungs clear to auscultation Cardiovascular: Rate/Rhythm: regular rate and regular rhythm Heart Sounds: normal S1 and normal S2; no gallop and no murmur Palpation: normal PMI Vessels: normal carotid upstroke and radial pulses present; no JVD and no carotid bruit Extremities: no edema Gastrointestinal (Abdomen): normal bowel sounds, soft, nontender, no hepatosplenomegaly Musculoskeletal: no cyanosis or clubbing, extremities motor strength 5/5 Skin: no rashes, warm and dry Neurologic: PERRL, EOMI, accommodation nl, no face palsy, no dysarthria Psychiatric: A+Ox3, euthymic affect Results & Data ([facility]) Vital Signs (Past 12 Hours) Vital Signs Temp Pulse Pulse Pulse Resp BP BP 08/26/22 15:17 36.7 C 92 H 18 115/81 08/26/22 14:17 36.7 C 95 H 18 121/84 08/26/22 13:17 36.6 C 91 H 18 111/77 08/26/22 12:45 36.5 C 93 H 18 118/74 08/26/22 12:15 36.1 C L 89 18 113/70 08/26/22 12:05 88 18 110/73 08/26/22 11:55 36.0 C L 90 18 103/68 08/26/22 11:10 85 08/26/22 10:42 36.6 C 88 20 133/90 08/26/22 08:00 36.5 C 84 16 116/63 08/26/22 05:02 84 Pulse Ox O2 Del Method 08/26/22 15:17 95 Room Air 08/26/22 14:17 96 Room Air 08/26/22 13:17 95 Room Air 08/26/22 12:45 95 Room Air 08/26/22 12:15 96 Room Air 08/26/22 12:05 95 Room Air 08/26/22 11:55 98 08/26/22 11:10 08/26/22 10:42 97 Room Air 08/26/22 08:00 99 Room Air 08/26/22 05:02 Laboratory Results Laboratory Results - last 24 hr 08/25/22 08/25/22 08/26/22 17:15 20:17 05:59 WBC 7.41 RBC 4.68 Hgb 14.3 Hct 42.0 MCV 89.7 MCH 30.6 MCHC 34.0 RDW Std Deviation 38.6 RDW Coeff of Stephanie 11.9 Plt Count 259 MPV 10.0 ESR Sodium Potassium Chloride Carbon Dioxide Anion Gap BUN Creatinine Est Cr Clr Drug Dosing Est GFR ( Amer) Est GFR (Non-Af Amer) BUN/Creatinine Ratio Glucose POC Glucose 91 Estimat Average Glucose Hemoglobin A1c Calcium Troponin I High Sens 7.1 C-Reactive Protein Urine Color Urine Appearance Urine pH Ur Specific [place] Urine Protein Urine Glucose (UA) Urine Ketones Urine Blood Urine Nitrite Urine Bilirubin Urine Urobilinogen Ur Leukocyte Esterase 08/26/22 08/26/22 08/26/22 05:59 05:59 05:59 WBC RBC Hgb Hct MCV MCH MCHC RDW Std Deviation RDW Coeff of Stephanie Plt Count MPV ESR 9 Sodium 140 Potassium 4.0 Chloride 104 Carbon Dioxide 30 Anion Gap 6 BUN 21 Creatinine 0.88 Est Cr Clr Drug Dosing 138.2 Est GFR ( Amer) 118.6 Est GFR (Non-Af Amer) 102.3 BUN/Creatinine Ratio 23.9 H Glucose 88 POC Glucose Estimat Average Glucose 154 Hemoglobin A1c 7.0 H Calcium 8.2 L D Troponin I High Sens C-Reactive Protein 1.37 H Urine Color Urine Appearance Urine pH Ur Specific [place] Urine Protein Urine Glucose (UA) Urine Ketones Urine Blood Urine Nitrite Urine Bilirubin Urine Urobilinogen Ur Leukocyte Esterase 08/26/22 08/26/22 08/26/22 06:04 10:38 11:59 WBC RBC Hgb Hct MCV MCH MCHC RDW Std Deviation RDW Coeff of Stephanie Plt Count MPV ESR Sodium Potassium Chloride Carbon Dioxide Anion Gap BUN Creatinine Est Cr Clr Drug Dosing Est GFR ( Amer) Est GFR (Non-Af Amer) BUN/Creatinine Ratio Glucose POC Glucose 86 88 63 L* Estimat Average Glucose Hemoglobin A1c Calcium Troponin I High Sens C-Reactive Protein Urine Color Urine Appearance Urine pH Ur Specific [place] Urine Protein Urine Glucose (UA) Urine Ketones Urine Blood Urine Nitrite Urine Bilirubin Urine Urobilinogen Ur Leukocyte Esterase 08/26/22 08/26/22 08/26/22 12:01 16:37 Unknown WBC RBC Hgb Hct MCV MCH MCHC RDW Std Deviation RDW Coeff of Stephanie Plt Count MPV ESR Sodium Potassium Chloride Carbon Dioxide Anion Gap BUN Creatinine Est Cr Clr Drug Dosing Est GFR ( Amer) Est GFR (Non-Af Amer) BUN/Creatinine Ratio Glucose POC Glucose 73 88 Estimat Average Glucose Hemoglobin A1c Calcium Troponin I High Sens C-Reactive Protein Urine Color Yellow Urine Appearance Clear Urine pH 5.5 Ur Specific [place] 1.036 H Urine Protein Negative Urine Glucose (UA) 3+ H Urine Ketones 1+ H Urine Blood Negative Urine Nitrite Negative Urine Bilirubin Negative Urine Urobilinogen Negative Ur Leukocyte Esterase Negative Diagnostic Findings Echocardiogram 08/26/2021: Mild left hypertrophy with normal left systolic function and no wall motion abnormality. No gross valvular disease. Normal left atrial size (1) Atrial flutter Atrial flutter type: unspecified Qualified Code(s): I48.92 - Unspecified atrial flutter
[2022-08-26] MEDS: cefTRIAXone SODIUM 2,000 MG in DEXTROSE 5% 50 ML IV SCH (16:53)
[2022-08-26] MEDS: VANCOMYCIN HCL 1,500 MG in SODIUM CHLORIDE 0.9% 500 ML IV SCH (17:31)
[2022-08-26] MEDS: METOPROLOL SUCC 25MG EXT REL TAB PO SCH (17:43)
[2022-08-27] MEDS: VANCOMYCIN HCL 1,500 MG in SODIUM CHLORIDE 0.9% 500 ML IV SCH (06:30)
[2022-08-27 07:05] LABS: Hematocrit (blood only) 40.7 % (40.1-51.0); Hemoglobin 13.5 g/dl (14.0-18.0); Mean Corpuscular Hemoglobin 30.3 pg (25.0-34.0); Mean Corpuscular Hgb Conc 33.2 g/dL (32.0-36.0); Mean Corpuscular Volume 91.3 fL (80.0-100.0); Mean Platelet Volume 9.9 fL (9.4-12.4); Platelet Count 227 K/uL (130-400); RDW Coefficient of Variation 11.8 % (11.5-14.5); RDW Standard Deviation 39.4 fL (36.4-46.3); Red Blood Count 4.46 M/uL (4.63-6.08); White Blood Count 6.49 K/ul (4.8-10.8)
[2022-08-27 07:36] LABS: BUN Creatinine Ratio 17.2 (10-20); Calcium 8.2 mg/dl (8.5-10.1); Creatinine Clr Calc Pharmacy 141.4 ml/min; Est GFR (African American) 119.1 ml/min; Est GFR (Non-African American) 102.8 ml/min; Potassium 3.8 mmol/L (3.5-5.1)
[2022-08-27] MEDS: INSULIN ASPART PER UNIT SC SCH ×4 (07:57→20:23)
[2022-08-27] MEDS: METOPROLOL SUCC 25MG EXT REL TAB PO SCH (08:03)
[2022-08-27] MEDS: FENOFIBRATE NANOCRYSTALLIZED 145 MG TABLET PO SCH (08:03)
[2022-08-27] MEDS: ROSUVASTATIN CALCIUM 20 MG TAB PO SCH (08:03)
[2022-08-27] MEDS: lisinopril 10 MG TAB PO SCH (08:03)
[2022-08-27] MEDS: MULTIVITAMIN TAB PO SCH (08:03)
[2022-08-27] MEDS ORDERED: FENOFIBRATE NANOCRYSTALLIZED 145 MG TABLET PO SCH (09:00)
--- NOTE | 2022-08-27 10:25 | Progress Notes ---
DATE OF SERVICE: 08/27/2022. SUBJECTIVE: Michael is resting comfortably in bed. No problems. He has been up for PT. His pain is minimal. He is afebrile. His vital signs are stable. Gram stain was negative, culture pending. White count normal, hematocrit 41, ESR yesterday 9, CRP 1.37. Foot is evaluated. Good ankle and toe movement. Swelling is less. Diminished erythema. The packin g is pulled and there is minimal purulence. The wound is then repacked with a Betadine and saline mo istened gauze sponge for a wet-to-dry dressing. Bulky foot dressing applied. IMPRESSION: 1. Left foot abscess. 2. Diabetes mellitus, probable neuropathy. PLAN: He can be up weightbearing as tolerated for minimal activity. Continue to elevate. We will f ollow up on cultures. For now, continue on the vancomycin and ceftriaxone. Once we get some further culture information, we can taper antibiotics. I am thinking something in the neighborhood of 48-72 hours of IV antibiotics and then switching to orals. He will need wound care. We will see if the [facility] [place] care nurse can help with wet-to-dry dressing changes while he is here. As an outpatient, he santo l need to do some of this on his own and need to follow up in our office or at the wound care clinic. DVT prophylaxis not necessary. Job ID: [id number]
--- NOTE | 2022-08-27 10:44 | Cardiology Progress Note ---
Date of Service August 27, 2022 Assessment & Plan (1) Atrial flutter: (2) Cellulitis of left foot: (3) HTN (hypertension): (4) HLD (hyperlipidemia): (5) Diabetes mellitus due to underlying condition with stage 2 chronic kidney disease, without long-term current use of insulin: Plan 46-year-old male found to be in atrial flutter during evaluation and treatment of left foot cellulitis and abscess. Patient spontaneously converted to sinus rhythm after initiation of single dose labetalol and IV diltiazem infusion Event likely precipitated by acute illness Currently [id number] score of 2. Echocardiogram without high risk features. 1. Paroxysmal atrial flutter: No Aflutter seen over night on tele. EKG today showing sinus rhythm. Continue metoprolol succinate 25 mg p.o. daily. Future considerations of increasing to 25 mg BID should HR elevate, atrial ectopy be seen. Will plan on outpatient zio monitor for further evaluation. We did discuss use of apple watches and/or a KardiaMobile device. 2. Discussed risk vs benefit of Anticoagulation, patient agreeable to start Eliquis 5 mg BID. Recommend case management giving patient free trial card and copay card. 3. Recommend follow up with [facility] cardiology in 4-6 weeks, will arrange for outpatient zio. 4. No further recommendations from a cardiology standpoint. Admission and Anticipated Discharge Date Admission Date: August 25, 2022 Supervising Physician Co-Signing Physician Notes Patient was seen and personally examined. He is remained in sinus rhythm since conversion yesterday. Tolerating current medical therapies. Recommendations and plan as above. Continue metoprolol succinate 25 mg/day discussed anticoagulation, would treat for 30 days. Reassess rhythm stability post discharge. Treat underlying morbidity Subjective 46-year-old male without prior history of cardiac disease who was noted to be in atrial flutter during evaluation of recent issues involving cellulitis/abscess left foot. EKG confirmed atrial flutter with elevated ventricular response rate, treated with IV labetalol and diltiazem. Patient spontaneously converted to sinus rhythm on 08/26 and since undergone surgical drainage left foot abscess. IV diltiazem discontinued in favor of metoprolol succinate 25 mg daily. 08/27: Tele: NSR 80s EKG 08/27: NSR 87 bpm Labs: Stable hemoglobin, potassium 3.8, creatinine 0.87, mag 2.0 Upon entrance into the room patient resting comfortably in bed. No acute cardiovascular concerns. stated that he was asymptomatic with his atrial flutter. No chest pain, sob. Eager for discharge. Review of Systems Review of Systems: All systems reviewed & are unremarkable except as noted in HPI & below Physical Exam Constitutional: WD/WN, vitals as above + obese; no acute distress Eyes: PERRL, conjunctivae normal, anicteric sclerae ENMT: external ear and nose normal, oropharynx normal Neck: trachea midline, no thyromegaly Respiratory: normal respiratory effort, lungs clear to auscultation Cardiovascular: Rate/Rhythm: regular rate and regular rhythm Heart Sounds: normal S1 and normal S2; no gallop and no murmur Palpation: normal PMI Vessels: normal carotid upstroke and radial pulses present; no JVD and no carotid bruit Extremities: no edema Gastrointestinal (Abdomen): normal bowel sounds, soft, nontender, no hepatosplenomegaly Musculoskeletal: no cyanosis or clubbing, extremities motor strength 5/5 Skin: no rashes, warm and dry Neurologic: PERRL, EOMI, accommodation nl, no face palsy, no dysarthria Psychiatric: A+Ox3, euthymic affect Results & Data ([facility]) Vital Signs (Past 12 Hours) Vital Signs Temp Pulse Resp BP BP Pulse Ox O2 Del Method 08/27/22 07:34 36.8 C 89 18 124/68 97 Room Air 08/27/22 03:25 36.6 C 92 H 16 110/70 98 Room Air 08/26/22 23:06 36.8 C 82 18 126/79 96 Room Air Laboratory Results CBC 08/27/22 Range/Units 06:38 WBC 6.49 (4.8-10.8) K/ul RBC 4.46 L (4.63-6.08) M/uL Hgb 13.5 L (14.0-18.0) g/dl Hct 40.7 (40.1-51.0) % Plt Count 227 (130-400) K/uL Comprehensive Metabolic Panel 08/27/22 Range/Units 06:38 Sodium 138 (136-145) mmol/L Potassium 3.8 (3.5-5.1) mmol/L Chloride 104 (98-107) mmol/L Carbon Dioxide 29 (21-32) mmol/L BUN 15 (6-23) mg/dl Creatinine 0.87 (0.6-1.4) mg/dl Glucose 113 H (70-99(Fasting)) mg/dl Calcium 8.2 L (8.5-10.1) mg/dl Intake and Output 08/26/22 08/27/22 08/27/22 22:59 06:59 14:59 Intake Total 2420.000 / 3181.292 50 / 3181.292 530 / 530 Output Total Balance 2420.000 / 3180.292 50 / 3180.292 529 / 529 Intake: IV 2120.000 / 2431.292 530 / 530 Sodium Chloride 0.9% 1000ML 1, 1520 / 1520 000 ml @ 80 mls/hr IV .[id number] KATHLEEN Rx#:[id number] Vancomycin HCl 1,500 mg In 530.000 / 530.000 530 / 530 Sodium Chloride 0.9% 500 ml @ 200 mls/hr IV Q12H KATHLEEN Rx#: [id number] cefTRIAXone SODIUM 2,000 mg In 70 / 70 Dextrose 5% 50 ml @ 100 mls/hr IV Q24H KATHLEEN Rx#:[id number] dilTIAZem HCL 125 mg In 0 / 36.292 Dextrose 5% 100 ml @ 0 MG/HR IV .Q0M KATHLEEN Rx#:[id number] Oral 300 / 350 50 / 350 Output: # Bowel Movements Other: # Unmeasured Voids 1 Weight 118.2 kg Weight Measurement Method Built in [facility] (1) Atrial flutter Atrial flutter type: unspecified Qualified Code(s): I48.92 - Unspecified atrial flutter
--- NOTE | 2022-08-27 11:06 | Electrocardiogram Report ---
Test Reason : Blood Pressure : / mmHG Vent. Rate : 096 BPM Atrial Rate : 096 BPM P-R Int : 156 ms QRS Dur : 098 ms QT Int : 368 ms P-R-T Axes : 143 191 160 degrees QTc Int : 464 ms Arm lead reversal Normal sinus rhythm Normal ECG taking into account lead reversal When compared with ECG of 26-AUG-2022 03:47, No significant change taking into account lead reversal Confirmed by Demarcus Clark ([id number]) on 08/27/2022 11:05:54 AM Referred By: REFERRED SELF Confirmed By:Demarcus Clark
--- NOTE | 2022-08-27 11:24 | Electrocardiogram Report ---
Test Reason : Blood Pressure : / mmHG Vent. Rate : 087 BPM Atrial Rate : 087 BPM P-R Int : 170 ms QRS Dur : 092 ms QT Int : 378 ms P-R-T Axes : 053 070 044 degrees QTc Int : 454 ms Normal sinus rhythm Normal ECG When compared with ECG of 26-AUG-2022 17:14, (unconfirmed) Prior tracing has arm lead reversal Confirmed by Demarcus Clark ([id number]) on 08/27/2022 11:23:33 AM Referred By: REFERRED SELF Confirmed By:Demarcus Clark
--- NOTE | 2022-08-27 12:56 | Pharmacy Report ---
Pharmacy Glycemic Short Note 2 - Date of Service August 27, 2022 - Glycemic Short BSG Results (Last 24 hours): 08/26/22 08/26/22 08/27/22 16:37 20:12 06:38 Glucose 113 H POC Glucose 88 110 H 08/27/22 08/27/22 07:25 11:17 Glucose POC Glucose 110 H 119 H OUTPATIENT ANTIDIABETIC REGIMEN: * Empagliflozin 25mg PO qAM * Glipizide XR 10mg PO qAM * Repaglinide 0.5mg PO TID with meals * Ozempic 1mg SQ weekly (on Thursday) * HbA1c: 7.5% (06/11/22) -- updated A1c pending ASSESSMENT: 08/27/22: * BSGs remain at or below goal. * Patient's diet was resumed post-procedure yesterday. Pt appears to be tolerating diet. * Holding basal insulin for now as patient has been well-controlled with carb coverage only. * Will continue to follow and adjust regimen as indicated. 08/26 * Mr Beasley is a 46yo diabetic M, admitted with L foot cellulitis/abscess and new onset AFib. * He was reportedly prescribed prednisone and Ceftin as an outpt for treatment of foot. * Pt was hyperglycemic on presentation to ED (BSG 215 mg/dL). Pt received some fluids and one dose of Lantus. BSGs have been below 100 mg/dL ever since. * Pt is maintained on oral antidiabetic agents as an outpatient * Oral agents are not recommended for inpatient use d/t drug interactions, changing PO intake, and difficulty titrating for acute hyper/hypoglycemia. ADA recommends re-initiating outpatient oral agents 1-2 days prior to discharge if/when appropriate if they were held on admission. * Will hold oral agents for admission and utilize SQ basal bolus insulin regimen which is the recommended regimen for inpatient glycemic control. * Will initiate weight based insulin dosing for insulin shukri patient and titrate based on BSG trends. * Starting with a conservative approach, as patient appears to be insulin- sensitive, based on response to dose given last evening. * ADA & AACE recommend a goal blood sugar range 140-180 mg/dl for the majority of critically ill & non-critically ill patients. However, more stringent targets may be selected in individual cases. Will utilize more stringent goal of 110-140mg/dl based on patient age & comorbidities. Additionally, tighter glycemic control is warranted to facilitate wound/infection healing. * Pt is NPO currently, for evaluation in the OR later today for possible I&D. PLAN FOR INPATIENT GLYCEMIC CONTROL: * Hold outpatient oral diabetes medications * Basal insulin * none for now * Bolus insulin * NovoLog per scale ACHS or Q6hrs while NPO * Goal Range: Low 110 mg/dL - High 140 mg/dL * Correction Factor: 30 mg/dL/unit * Nutritional / Prandial insulin per carb ratio of 1 unit per 10 grams CHO consumed
--- NOTE | 2022-08-27 13:06 | Pharmacy Report ---
Pharmacy PK ABX Note - Date of Service August 27, 2022 - Assessment and Plan Assessment 08/27/22: * Pt went to OR yesterday for I&D L foot. * Per ortho, likely 48-72hr of IV abx and then transition to PO. * Vanc level obtained today indicating that current regimen was too conservative. Regimen increased. * Blood cultures negative to date; L foot culture pending * ID consult pending 08/25 * 46 year old M receiving vancomycin and ceftriaxone for treatment of left foot cellulitis/abscess. Blood cultures pending. Plan for I&D tomorrow. Renal function stable. * Day # 1 of antimicrobial therapy. Plan Vancomycin * Increase maintenance dose to vancomycin 1750mg (~15mg/kg) IV q12h, which is predicted to achieve target AUC/STARR of 400-600 mg/L.hr * No further levels have been ordered at this time. If pt remains on vancomycin, will consider the need for additional monitoring. Pharmacy will continue to follow and will adjust dose/frequency as necessary. Thank you. Pharmacy has transitioned to AUC monitoring for vancomycin. AUC/STARR is the preferred PK/PD target and is associated with decreased risk of nephrotoxicity compared to traditional trough targets.
[2022-08-27] MEDS ORDERED: VANCOMYCIN HCL 1,750 MG in SODIUM CHLORIDE 0.9% 500 ML IV SCH (14:00)
[2022-08-27] MEDS: cefTRIAXone SODIUM 2,000 MG in DEXTROSE 5% 50 ML IV SCH (17:05)
--- NOTE | 2022-08-27 19:01 | Hospitalist Progress Note ---
Date of Service August 27, 2022 Assessment & Plan (1) New onset a-fib: Plan: Was on diltiazem drip, spontaneously converted to sinus rhythm TTE Ordered Left ventricular wall motion is normal with ejection fraction 65 to 70% CHADSVASC- at least 2. Cardiology cardiology on board Started on Eliquis 5 mg twice daily (2) Cellulitis of left foot: Plan: Status post Left Foot Incision and Drainage(Left) performed by Chris Damian MD Wound culture grew group B beta strep ID on board recommended to discontinue vancomycin, then continue ceftriaxone while inpatient Case discussed with Dr. Bar that suggested if there is no evidence of septic arthritis or metatarsal so phalangeal joint involvement to transition to amoxicillin 5 mg every 8 hour for 14 days (3) HTN (hypertension): Plan: continue lisinopril, BP within goal (4) Diabetes mellitus due to underlying condition with stage 2 chronic kidney disease, without long-term current use of insulin: Plan: .Carb coverage insulin while here, resume home medications at discharge (5) Macular degeneration: (6) Obesity: Plan: Ongoing weight loss counseling (7) HLD (hyperlipidemia): Plan: Takes Rosuvastatin; continue TG 432, LDL 79, HDL 150 Per outpatient records started Fenofibrate here as well Plan Disposition: PCP Dr. Smiley CODE STATUS: Full code VTE prophylaxis: Teds and SCDs for now Point of contact Silas patient's brother [phone] Admission and Anticipated Discharge Date Admission Date: August 25, 2022 Subjective Patient was seen and evaluated for follow-up Lying in bed with no acute distress Patient said he has minimal pain in his lower extremity Denies any chest pain, palpitation, dizziness, shortness of breath. Review of Systems Review of Systems: All systems reviewed & are unremarkable except as noted in Subjective Physical Exam Physical Exam: General- No acute distress Head- atraumatic Eyes- PERRL, EOMI, ENT- oropharynx clear Neck- supple, no JVD Lungs- clear to auscultation Heart- regular rhythm; no murmur Abdomen- normal bowel sounds, soft, nontender Extremities- no calf tenderness, positive left foot with dressing on Neuro- alert, oriented x 3; PERRL, EOMI; no facial palsy; no dysarthria Skin- warm & dry Results & Data Results & Data ([facility]) Vital Signs (Past 12 Hours) Vital Signs Temp Pulse Resp BP Pulse Ox O2 Del Method 08/27/22 11:30 36.9 C 76 16 125/87 95 Room Air 08/27/22 07:34 36.8 C 89 18 124/68 97 Room Air
[2022-08-27] MEDS: APIXABAN 5 MG TABLET PO SCH (20:29)
[2022-08-28] MEDS: INSULIN ASPART PER UNIT SC SCH ×2 (08:32→12:06)
[2022-08-28] MEDS: FENOFIBRATE NANOCRYSTALLIZED 145 MG TABLET PO SCH (08:36)
[2022-08-28] MEDS: APIXABAN 5 MG TABLET PO SCH (08:36)
[2022-08-28] MEDS: lisinopril 10 MG TAB PO SCH (08:36)
[2022-08-28] MEDS: METOPROLOL SUCC 25MG EXT REL TAB PO SCH (08:36)
[2022-08-28] MEDS: ROSUVASTATIN CALCIUM 20 MG TAB PO SCH (08:36)
[2022-08-28] MEDS: MULTIVITAMIN TAB PO SCH (08:36)
--- NOTE | 2022-08-28 12:58 | Orthopedic Progress Note ---
Date of Service August 28, 2022 Assessment & Plan (1) Cellulitis of left foot: Plan: Postop day 2-status post I&D left foot. Weight-bear as tolerated with postop shoe when out of bed. Ice and elevate left foot above your heart to relieve pain and swelling. Dressing changes to left foot daily. He may shower. Repack wound. Dressing was changed by wound care nurse today. Patient feels that he is able to do this on his own at home. He would also like wound care appointments to follow the progression of the wound healing. He plans to return to work tomorrow and states that he is able to elevate his foot and stay off of it while at work. Work restrictions were placed in his discharge instructions as he requested. Call our office with any increased pain, swelling, fevers, chills or increased drainage. Okay from orthopedic standpoint for discharge today. ID consult recommendations are noted continue the Rocephin during his inpatient stay and then discharged home on amoxicillin 500 mg every 8 hours for 14 days. Follow-up as scheduled next Thursday. Admission and Anticipated Discharge Date Admission Date: August 25, 2022 Subjective Patient doing well. No complaints of pain in his left foot. His dressing was changed by the wound care nurse. He states that he is ready to go home and feels that he is ready go back to work tomorrow. Physical Exam Musculoskeletal: Dr. Damian present for today's visit. We did not take down the dressing was changed by the wound care nurse earlier today. He has no significant edema to his left foot. No ecchymosis. His foot was elevated on a few pillows. Tolerates gentle range of motion without discomfort. Results & Data ([facility]) Vital Signs (Past 12 Hours) Vital Signs Temp Pulse Resp BP BP Pulse Ox O2 Del Method 08/28/22 11:30 36.8 C 86 20 128/80 96 Room Air 08/28/22 07:46 37.1 C 86 18 121/73 95 Room Air 08/28/22 03:16 36.6 C 88 18 113/74 96 Room Air
[2022-08-28] MEDS: cefTRIAXone SODIUM 2,000 MG in DEXTROSE 5% 50 ML IV SCH (14:36)
[2022-08-29] MEDS ORDERED: LANTUS PER UNIT CHARGE SQ SCH (09:00)
--- NOTE | 2022-09-07 22:14 | Discharge Summary ---
Date of Service August 28, 2022 Admission HPI Per Admitting Provider Mr. Michael Jeffries is a 46-year-old male that presented to the [facility] as per recommendation by his PCP Dr. Smiley. He was being seen for outpatient follow-up for left foot cellulitis and found to be tachycardic in the office. In the ED, the patient was found to have a heart rate of 160. He was given NSB 1L x1 along with adenosine 6 mg x 2; underlying rhythm appears to be rapid atrial fibrillation/atrial flutter. In the ED labs relatively unremarkable aside outside of his glucose level 215. He states that he was receiving prednisone as an outpatient for treatment for his foot cellulitis. Last dose of prednisone was today. Troponin 10.2, D-dimer 380. Patient states that he has been noticing intermittent dizziness midday for the last 8 months which he attributes to his morning dose of lisinopril. Patient states that 20 years ago he did have work-up at [facility] in [place] after he started to have fluttering in his chest however no official diagnosis was received at that time. 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 Patient also plays the guitar. Patient denies headache, chest pain, palpitations, visual changes, nausea, vomiting, diarrhea, appetite changes, recent falls or trauma. Additional past medical history includes noninsulin-dependent diabetic, type two, peripheral neuropathy,hyperlipidemia, hypertension and obesity. Patient states he drinks coffee 1 time per day, is a social beer drinker with 5- 6 beers per month and occasional bourbon. Patient quit smoking 17 years ago. No recreational drug use. No exercise routine. Patient reports that his father of a AMI 4 years ago. MGF diabetic, CVA. In the ED, the patient was lying in his bed in no apparent distress and was able to speak in complete sentences without distress. Patient will be admitted for further evaluation and management. Please see A/P for further details. Admission Exam Per Admitting Provider Neuro: AAOx4, PERRLA, no aphagia, memory changes, CNII-XII grossly intact HEENT: head normocephalic, moist mucus membranes CV: S1/S2, (-) M/G/R, (-) edema, cap refill < 3 seconds Resp: Lungs CTA in all suarez. On RA GI: Abdomen S/NT/ND, Ax4 bowel sounds, (-) CVA tenderness Musculoskeletal: 5/5 B/L UE strength, 5/5 B/L LE strength. No gait disturbance Skin: (-) rashes , (+) erythema dorsal part of left foot. Dime sized wound Without purulent drainage. Erythematous borders. Psych: euthymic mood Principal Diagnosis New onset a-fib: Cellulitis of left foot: HTN (hypertension): Diabetes mellitus due to underlying condition with stage 2 chronic kidney disease, without long-term current use of insulin: Macular degeneration: Obesity: HLD (hyperlipidemia): Discharge Exam General- No acute distress Head- atraumatic Eyes- PERRL, EOMI, ENT- oropharynx clear Neck- supple, no JVD Lungs- clear to auscultation Heart- regular rhythm; no murmur Abdomen- normal bowel sounds, soft, nontender Extremities- no calf tenderness, positive left foot with dressing on Neuro- alert, oriented x 3; PERRL, EOMI; no facial palsy; no dysarthria Skin- warm & dry Discharge Data Allergies Allergy/AdvReac Type Severity Reaction Status Date / Time No Known Allergies Allergy Unverified 08/26/22 10:41 Consultations 08/25/22 13:32 ED Decision to Admit Stat 08/25/22 13:56 Consult Cardiology Routine 08/25/22 17:57 Consult Orthopedic Surgery Routine 08/26/22 20:17 Consult Infectious Diseases Routine Procedures Performed Operation Date: 08/26/22 09:30 Actual Procedures p Left Foot Incision and Drainage(Left) - Chris Damian MD Ordered Studies 08/25/22 17:56 CT foot LT w con Urgent Laboratory Results WBC 6.49 K/ul (4.8-10.8) 08/27/22 06:38 RBC 4.46 M/uL (4.63-6.08) L 08/27/22 06:38 Hgb 13.5 g/dl (14.0-18.0) L 08/27/22 06:38 Hct 40.7 % (40.1-51.0) 08/27/22 06:38 MCV 91.3 fL (80.0-100.0) 08/27/22 06:38 MCH 30.3 pg (25.0-34.0) 08/27/22 06:38 MCHC 33.2 g/dL (32.0-36.0) 08/27/22 06:38 RDW Std Deviation 39.4 fL (36.4-46.3) 08/27/22 06:38 RDW Coeff of Stephanie 11.8 % (11.5-14.5) 08/27/22 06:38 Plt Count 227 K/uL (130-400) 08/27/22 06:38 MPV 9.9 fL (9.4-12.4) 08/27/22 06:38 Immature Gran % (Auto) 1.5 % 08/25/22 11:40 Neut % (Auto) 77.9 % 08/25/22 11:40 Lymph % (Auto) 15.4 % 08/25/22 11:40 Bladen % (Auto) 3.8 % 08/25/22 11:40 Eos % (Auto) 0.6 % 08/25/22 11:40 Baso % (Auto) 0.8 % 08/25/22 11:40 Neut # (Auto) 6.42 K/uL (1.4-6.5) 08/25/22 11:40 Lymph # (Auto) 1.27 K/uL (1.2-3.4) 08/25/22 11:40 Bladen # (Auto) 0.31 K/uL (0.24-0.82) 08/25/22 11:40 Eos # (Auto) 0.05 K/uL (0-0.50) 08/25/22 11:40 Baso # (Auto) 0.07 K/uL (0-0.2) 08/25/22 11:40 Immature Gran # (Auto) 0.12 K/uL (0.00-0.02) H 08/25/22 11:40 ESR 9 mm/hr (0-15) 08/26/22 05:59 PT 10.8 Seconds (9.0-12.0) 08/25/22 11:40 INR 1.0 (0.9-1.1) 08/25/22 11:40 APTT 26.3 Seconds (21.0-31.0) 08/25/22 11:40 PTT Ratio 1.0 08/25/22 11:40 D-Dimer 380 ug/L FEU (0-500) 08/25/22 11:40 Sodium 138 mmol/L (136-145) 08/27/22 06:38 Potassium 3.8 mmol/L (3.5-5.1) 08/27/22 06:38 Chloride 104 mmol/L (98-107) 08/27/22 06:38 Carbon Dioxide 29 mmol/L (21-32) 08/27/22 06:38 Anion Gap 5 (3-11) 08/27/22 06:38 BUN 15 mg/dl (6-23) 08/27/22 06:38 Creatinine 0.87 mg/dl (0.6-1.4) 08/27/22 06:38 Est Cr Clr Drug Dosing 141.4 ml/min 08/27/22 06:38 Est GFR ( Amer) 119.1 ml/min 08/27/22 06:38 Est GFR (Non-Af Amer) 102.8 ml/min 08/27/22 06:38 BUN/Creatinine Ratio 17.2 (10-20) 08/27/22 06:38 Glucose 113 mg/dl (70-99(Fasting)) H 08/27/22 06:38 POC Glucose 164 mg/dl (70-99) H 08/28/22 11:29 Estimat Average Glucose 154 mg/dl 08/26/22 05:59 Hemoglobin A1c 7.0 % (4.5-5.6) H 08/26/22 05:59 Calcium 8.2 mg/dl (8.5-10.1) L 08/27/22 06:38 Magnesium 2.0 mg/dl (1.7-2.4) 08/27/22 06:38 Troponin I High Sens 7.1 pg/ml (0-20) 08/25/22 17:15 C-Reactive Protein 1.37 mg/dl (0-0.5) H 08/26/22 05:59 Triglycerides 314 mg/dl (0-150) H 08/25/22 11:44 Cholesterol 178 mg/dl (0-200) 08/25/22 11:44 LDL Cholesterol, Calc 82 mg/dl 08/25/22 11:44 VLDL Cholesterol, Calc 63 mg/dl (0-30) H 08/25/22 11:44 HDL Cholesterol 33 mg/dl 08/25/22 11:44 Cholesterol/HDL Ratio 5.4 (0-5) H 08/25/22 11:44 Lipase 30 U/L (11-82) 08/25/22 11:40 Urine Color Yellow 08/26/22 Unknown Urine Appearance Clear (Clear) 08/26/22 Unknown Urine pH 5.5 (4.5-7.5) 08/26/22 Unknown Ur Specific [employer] 1.036 (1.000-1.030) H 08/26/22 Unknown Urine Protein Negative (Negative) 08/26/22 Unknown Urine Glucose (UA) 3+ (Negative) H 08/26/22 Unknown Urine Ketones 1+ (Negative) H 08/26/22 Unknown Urine Blood Negative (Negative) 08/26/22 Unknown Urine Nitrite Negative (Negative) 08/26/22 Unknown Urine Bilirubin Negative (Negative) 08/26/22 Unknown Urine Urobilinogen Negative (Negative) 08/26/22 Unknown Ur Leukocyte Esterase Negative (Negative) 08/26/22 Unknown Stool Occult Bld Scrn Negative (Negative) 08/27/22 09:15 Random Vancomycin 11.6 mcg/ml (10-20) 08/27/22 11:42 SARS-CoV-2, RNA, NAAT NEGATIVE (NEGATIVE) 08/25/22 12:17 Impressions Chest X-Ray 08/25/22 11:52 SINGLE VIEW CHEST CLINICAL HISTORY: Atypical chest pain. FINDINGS: 2 AP, portable, upright chest radiographs are obtained. No prior studies are available for comparison at the time of dictation. The examination is degraded by portable technique and apical lordotic positioning. The cardiomediastinal silhouette is top normal for projection. The lungs and pleural spaces are clear. No pneumothorax is seen. The bony thorax is grossly intact. IMPRESSION: No active disease in the chest. ACT 112: Negative or not required by law. Electronically signed by: Omar Bartlett M.D. 08/25/2022 12:[address] 08/25/22 17:[address] WITH CONTRAST CLINICAL HISTORY: Concern for abscess. COMPARISON STUDY: Left foot radiographs August 25, 2022. TECHNIQUE: Axial images of the left obtained following intravenous injection of 94 cc of Optiray 350 IV. Sagittal and coronal reconstructions were viewed. Automated exposure control was utilized for the study. A dose lowering technique was utilized adhering to the principles of ALARA. FINDINGS: Moderate vascular calcification is noted. There is no soft tissue gas. Alignment of the left foot is anatomic. There is no acute fracture. There is no evidence for acute osteomyelitis within the left foot. No rim-enhancing fluid collection is noted. Note is made of a 2.6 x 0.9 cm focus of subcutaneous edema overlying the dorsal distal aspects of the third and fourth metatarsals. No additional sites of significant edema are present. Distal left tibia and fibula are intact. IMPRESSION: 1. No acute fracture. No evidence for acute osteomyelitis within the left foot. 2. 2.6 x 0.9 cm focus of subcutaneous edema of the dorsal left foot overlying the distal left third and fourth metatarsals. Given lack of rim enhancement, phlegmon is favored. A developing abscess would be difficult to exclude. ACT 112: Negative or not required by law. Electronically signed by: Paul Oh M.D. 08/26/2022 8:50 AM Foot X-Ray 08/25/22 18:32 LEFT FOOT 3 VIEWS HISTORY: Left foot pain COMPARISON: None. FINDINGS: There is no fracture or dislocation. Soft tissues are unremarkable. Mild vascular calcifications are noted within the left ankle. There is a posterior calcaneal spur. The Lisfranc joint is intact. IMPRESSION: No fractures. ACT 112: Negative or not required by law. Electronically signed by: Janusz Jacobsen M.D. 08/25/2022 7:06 PM Hospital Course (1) New onset a-fib: Was on diltiazem drip, spontaneously converted to sinus rhythm TTE Ordered Left ventricular wall motion is normal with ejection fraction 65 to 70% CHADSVASC- at least 2. Cardiology cardiology on board Started on Eliquis 5 mg twice daily (2) Cellulitis of left foot: Status post Left Foot Incision and Drainage(Left) performed by Chris Damian MD Wound culture grew group B beta strep ID on board recommended to discontinue vancomycin, then continue ceftriaxone while inpatient Case discussed with Dr. Bar that suggested if there is no evidence of septic arthritis or metatarsal so phalangeal joint involvement to transition to amoxicillin 5 mg every 8 hour for 14 days (3) HTN (hypertension): continue lisinopril, BP within goal (4) Diabetes mellitus due to underlying condition with stage 2 chronic kidney disease, without long-term current use of insulin: .Carb coverage insulin while here, resume home medications at discharge (5) Macular degeneration: (6) Obesity: Ongoing weight loss counseling (7) HLD (hyperlipidemia): Takes Rosuvastatin; continue TG 432, LDL 79, HDL 150 Per outpatient records started Fenofibrate here as well Plan Disposition: PCP Dr. Smiley CODE STATUS: Full code VTE prophylaxis: Teds and SCDs for now Point of contact Silas huitron's brother [phone] Total Time Total Time Spent Total Time Spent (In Minutes): 35 minutes Discharge Plan Discharge Items Patient Disposition: Home - Self-Care Reason For Visit: REFERRED BY DOCTOR Discharge Diagnosis: New onset a-fib: Cellulitis of left foot: HTN (hypertension): Diabetes mellitus due to underlying condition with stage 2 chronic kidney disease, without long-term current use of insulin: Macular degeneration: Obesity: HLD (hyperlipidemia): Activity: Resume your previous activity Bathing Comment: Okay to remove packing from left foot, shower and redress after showering. Non-emergency contact: Surgeon Call non-emergency contact if: your symptoms worsen, your pain is not controlled, your temperature is above 101, your wound has increased redness and your wound has increased drainage Follow-up/Referrals: [facility] [Other] - 09/03/22 10:00 am ([address], [place] [address] ) Tequila Marshall PA-C [Physician Soiled Linen Distributor] - 09/02/22 10:00 am Chery Smiley MD [Primary Care Provider] - (Date & Time 09/03/2022 10:40 AM Provider Chery Smiley MD Department General Internal Medicine [facility] ) Diet: Heart Healthy Addtl Attending Provider Instructions: Follow up with your primary care provider 09/03/2022 @ 10:40 AM Chery Smiley MD Department General Internal Medicine [facility] Follow up with Orthopedic Tequila Marshall on 09/02/22 @ 10AM Follow up with wound care clinic Follow up with cardiology in 4 to 6 weeks ( please call to arrange for the appointment) You will need to arrange for outpatient zio patch to monitor your heart rhythm Medication Instructions: Eliquis Your condition is typically treated with an anticoagulant. Anticoagulants will thin your blood to help prevent new clots. You should take her medication exactly as directed. Never skip a dose. Never take a double dose. If you miss a dose, take it as soon as you remember. Avoid NSAIDs (Motrin, Aleve, Naproxen, Ibuprofen, Advil, Meloxicam,..) due to risks of bleeding Call your Primary Care doctor if you experience any of the following: Swelling or Pain in your leg Sudden, continuous pain deep in a muscle Pain that worsens when you are active or when you stand still for a long time Chest Pain Sudden Shortness of Breath Rapid or pounding heart beat Fainting Dizziness Cough with blood or bloody sputum Sweating more than normal Bruises Heavy or uncontrolled bleeding Blood in your urine, stool or vomit Black or tarry stools Caring for Your Self at Home: Avoid sitting, standing or lying down for long periods without moving your legs and feet When traveling by car, stop to get out and move around at least once every 3 hours On long airplane, train or bus rides, get up and move around when possible If you can't get up, wiggle your toes and tighten your calves to keep your blood moving Addtl Linen Sorter Provider Instructions: Orthopedic instructions: - You may weight bear as tolerated. Wear your post op shoe when out of bed ambulating. - Ice to left foot as needed for pain/swelling. - Elevate left foot above your heart to relieve pain/swelling. - Post op shoe on left foot when out of bed. - You may shower, remove dressing, let soap and water run over foot and then redress left foot. -Do dressing change daily. Pack wound with saline gauze. - Wound care clinic appointments as scheduled for dressing changes. - You may return to work as soon as 08/29/22. You may do your regular duty job, but please wear post op shoe while at work and you may need to take breaks from walking or standing and elevate the foot for swelling. -Call Dr. Damian with any increased pain, swelling, fevers, chills, drainage. Call [phone] with any issues or questions. -Follow-up as scheduled with Tequila Marshall PA-C for dressing change and wound check. Pending Studies at Discharge: No Stand-Alone Forms: My [facility], Work/School Release, Smoking Cessation Medications and DC Order Prescriptions: New metoprolol succinate 25 mg Tablet Extended Release 24 Hr 25 mg PO QAM 30 Days Qty: 30 0RF Eliquis 5 mg Tablet 5 mg PO BID 30 Days Qty: 60 0RF amoxicillin 500 mg tablet 500 mg PO Q8H 12 Days Qty: 36 0RF Continued GLIPIZIDE (GLUCOTROL) 5 MG tablet 5 mg PO twice daily w meals Qty: 60 2RF METFORMIN HCL (GLUCOPHAGE EXT REL) 1,000 MG tablet 1,000 mg PO BID Qty: 0 ATORVASTATIN (LIPITOR) 10 MG tablet 10 mg PO DAILY Qty: 0 repaglinide 0.5 mg Tablet 0.5 mg lisinopril 10 mg Tablet 10 mg PO DAILY rosuvastatin 20 mg Tablet 20 mg PO DAILY empagliflozin 25 mg Tablet 25 mg PO QAM fenofibrate 150 mg PO QAM (DME) Dexcom G6 Sensor Device MISCELLANEOUS Discharge Orders: Discharge Order (Routine); Ordered 08/28/22 Ordered By: Paresh Powell/Other Patient Handouts: Managing Type 2 Diabetes Admission Data Admit Date/Time: 08/25/22 13:56 Attending Provider: Paresh Mcghee Admit Provider: Reynaldo Joyce Primary Care Provider: Chery Smiley Other Providers: Reynaldo Joyce ; Jhon Ha ; Chris Damian ; Tevin Dunlap ; Danica Gay ; Vasquez Tyson I. ; Vinh De Jesus II ; Danielle Fernandez ; Sree Betts ; Darrion Bajwa ; John Bar Other Interventions: Discharge Summary Assessment (RN) Last Done: 08/28/22 15:33
== END 2022-08-28 16:11 | disposition home or self-care (01) | DRG 982 ==
LOC: ED 11:26 → SUATTDRO 13:56 → 2S 13:56